=== PATIENT | female | born 1940 | race Caucasian/White ===

== ENCOUNTER 2017-06-18 15:22 | Emergency (ER) | payer MEDICARE, OTHER ==
[~2017-06-18] VITALS: Ht 162.6 cm; Wt 52.2 kg
[~2017-06-18 15:22] MED LIST: CALCIUM + VITA1 EACH PO; CENTRUM COMPLE1 EACH PO; CIPRO500 MG PO; DYMISTA NASAL S23 GM NAS; FISH OIL 1,001000 MG PO; FLAX OIL1000 MG PO; FUROSEMIDE20 MG PO; GLUMETZA500 MG PO; HUMULIN N100 UNIT/1 SUB-Q; KEFLEX500 MG PO; NADOLOL20 MG PO; NOVOLOG FL100 UNIT/1 SUB-Q; PANTOPRAZOLE SO40 MG PO; SPIRONOLACTONE50 MG PO; VITAMIN D1000 UNIT PO; ZOCOR10 MG PO
--- OUTSIDE RECORDS SUMMARY | 2017-06-18 15:54 | XMS ---
Demographics + + + | Address | [address] | | | [place] [address] | + + + | Preferred Language | Unknown | + + + | Marital Status | Unknown | + + + | Church Affiliation | Unknown | + + + | Race | Unknown | + + + | Ethnic Group | Unknown | + + + Author + + + | Author | [facility] | + + + | Organization | [facility] | + + + | Address | [address] | | | [place] [address] | + + + | Phone | | + + + Care Team Providers + + + + | Care Paintings Restorer Name | Role | Phone | + + + + Unavailable | Unavailable | + + + + PROBLEMS +---------+ + + +--------+ + + | Type | Condition | ICD9-CM | CAM23-VZ | Onset | Condition | SNOMED | | | | Code | Code | Dates | Status | Code | +---------+ + + +--------+ + + | Problem | Cirrhosis | K74.60 | | | Active | [id number] | | | of liver | | | | | | +---------+ + + +--------+ + + | Problem | Hyponatrem | | E87.1 | | Active | 29979584 | | | ia | | | | | | +---------+ + + +--------+ + + | Problem | Diabetes | E11.65 | | | Active | [id number] | | | mellitus | | | | | [address] | | | with | | | | | | | | hyperglyce | | | | | | | | noreen | | | | | | +---------+ + + +--------+ + + | Problem | Left knee | | M25.562 | | Active | [id number] | | | pain | | | | | | +---------+ + + +--------+ + + | Problem | Kidney | N18.3 | | | Active | [id number] | | | disease, | | | | | | | | chronic, | | | | | | | | stage III | | | | | | | | (GFR 30-59 | | | | | | | | ml/min) | | | | | | +---------+ + + +--------+ + + | Problem | Vitamin D | | E55.9 | | Active | [id number] | | | deficiency | | | | | | | | , | | | | | | | | unspecifie | | | | | | | | d | | | | | | +---------+ + + +--------+ + + ALLERGIES Unknown Allergies SOCIAL HISTORY No smoking Hx information available PLAN OF CARE VITAL SIGNS MEDICATIONS Unknown Medications RESULTS No Results PROCEDURES No Known procedures IMMUNIZATIONS No Known Immunizations"
[2017-07-09] MEDS ORDERED: CENTRUM SILVER1 EAC3 PO (14:09)
[2017-07-09] MEDS ORDERED: FISH OIL 1,0001 EAC3 PO (14:10)
[2017-07-09] MEDS ORDERED: LIDODERM1 EACH TD (14:12)
[2017-07-09] MEDS ORDERED: METFORMIN HCL500 MG PO (14:14)
[2017-07-09] MEDS ORDERED: NITROFURANTOIN100 MG PO (14:15)
== END 2017-06-18 16:41 | disposition home or self-care (01) ==
LOC: ED 15:22
DX: M79.81 Nontraumatic hematoma of soft tissue (principal); E78.5 Hyperlipidemia, unspecified; D64.9 Anemia, unspecified; F32.9 Major depressive disorder, single episode, unspecified; E11.9 Type 2 diabetes mellitus without complications; K21.9 Gastro-esophageal reflux disease without esophagitis; I10 Essential (primary) hypertension; M79.7 Fibromyalgia; Z86.73 Personal history of transient ischemic attack (TIA), and cerebral infarction without residual deficits; Z87.891 Personal history of nicotine dependence; Z90.49 Acquired absence of other specified parts of digestive tract; Z90.710 Acquired absence of both cervix and uterus; Z90.89 Acquired absence of other organs; Z88.0 Allergy status to penicillin; Z79.899 Other long term (current) drug therapy; Z79.2 Long term (current) use of antibiotics; Z79.4 Long term (current) use of insulin
CPT/HCPCS: 99282

== ENCOUNTER 2017-07-19 09:40 | Inpatient (IN) | payer MEDICARE, OTHER ==
[~2017-07-19] VITALS: Ht 162.6 cm; Wt 54.4 kg
[~2017-07-19 09:40] MED LIST changes: +CENTRUM SILVER1 EAC3 PO; +FISH OIL 1,0001 EAC3 PO; +LIDODERM1 EACH TD; +METFORMIN HCL500 MG PO; +NITROFURANTOIN100 MG PO
--- OUTSIDE RECORDS SUMMARY | 2017-07-19 10:02 | XMS ---
Demographics + + + | Address | [address] | | | [place] [address] | + + + | Preferred Language | Unknown | + + + | Marital Status | Unknown | + + + | Gnosticism Affiliation | Unknown | + + + | Race | Unknown | + + + | Ethnic Group | Unknown | + + + Author + + + | Author | [facility] | + + + | Organization | [facility] | + + + | Address | [address] | | | [place] [phone] | + + + | Phone | | + + + Care Team Providers + + + + | Care Quality Auditor Name | Role | Phone | + + + + Unavailable | Unavailable | + + + + PROBLEMS +---------+ + + +--------+ + + | Type | Condition | ICD9-CM | NSE98-ZB | Onset | Condition | SNOMED | | | | Code | Code | Dates | Status | Code | +---------+ + + +--------+ + + | Problem | Cirrhosis | K74.60 | | | Active | [id number] | | | of liver | | | | | | +---------+ + + +--------+ + + | Problem | Hyponatrem | | E87.1 | | Active | 81590833 | | | ia | | | | | | +---------+ + + +--------+ + + | Problem | Diabetes | E11.65 | | | Active | [id number] | | | mellitus | | | | | [address] | | | with | | | | | | | | hyperglyce | | | | | | | | noreen | | | | | | +---------+ + + +--------+ + + | Problem | Left knee | | M25.562 | | Active | 609136901 | | | pain | | | | | | +---------+ + + +--------+ + + | Problem | Kidney | N18.3 | | | Active | [id number] | | | disease, | | | [...] | | E55.9 | | Active | 90713555 | | | deficiency | | | | | | | | , | | | | | | | | unspecifie | | | | | | | | d | | | | | | +---------+ + + +--------+ + + ALLERGIES No Information SOCIAL HISTORY Never Assessed PLAN OF CARE VITAL SIGNS MEDICATIONS Unknown Medications RESULTS No Results PROCEDURES No Known procedures IMMUNIZATIONS No Known Immunizations MEDICAL (GENERAL) HISTORY + + +------+ | Type | Description | Date | + + +------+ | 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 | | + + +------+ | Medical History | benign positional vertigo | | + + +------+ | Medical History | Chronic rhinitis | | + + +------+ | Medical History | cirrhosis | | + + +------+ | Medical History | DM 2 | | + + +------+ | Medical History | depression | | + + +------+ | Medical History | gerd | | + + +------+ | Medical History | HTN | | + + +------+ | Medical History | hyperlipidemia | | + + +------+ | Medical History | left medial knee pain | | + + +------+ | Medical History | leukopenia | | + + +------+ | 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
[2017-07-19] MEDS ORDERED: ZOFRAN ODT4 MG SL (10:49)
[2017-07-19] MEDS ORDERED: POTASSIUM CHLO20 ME1 PO (10:50)
[2017-07-19] MEDS ORDERED: ULTRAM50 MG PO (11:31)
[2017-07-19] MEDS ORDERED: ACETAMINOPHEN650 M1 PO (11:32)
--- NOTE | 2017-07-19 16:06 | NUR ---
IV SITE INTACT, NO REDNESS OR SWELLING NOTED, FLUSHES AND FLUIDS INFUSE EASILY. PT SOMNOLENT RESPONDS WITH MOANING ONLY TO PHYSICAL STIMULI. VITALS WNL AT THIS TIME. INCISION SITE ON LEFT THIGH, DRAIN INTACT, DRESSING INTACT, NO DRAINAGE ON DRESSING NOTED. BARAK DRAIN HAS SANGUINEOUS DRAINAGE NOTED.
--- NOTE | 2017-07-19 16:41 | NUR ---
REDDENED COCCYX NOTED, WELL STERI STRIPS ON BILAT ARMS FOR WHAT APPEARS TO BE SKIN TEARS.
[2017-07-19] MEDS ORDERED: DULCOLAX10 MG PR (16:46)
[2017-07-19] MEDS ORDERED: FLEET ENEMA133 ML PR (16:49)
[2017-07-19] MEDS ORDERED: GLUCAGON EMERGEN1 MG INJ (16:51)
[2017-07-19] MEDS ORDERED: HUMULIN N100 UNIT/1 SUB-Q (16:58)
[2017-07-19] MEDS ORDERED: MILK OF MA400 MG/5 M PO (17:00)
--- NOTE | 2017-07-19 17:05 | NUR ---
CALLED TO UPDATE ON PT STATUS OF NOT WAKING UP AND SPIKING A FEVER. ORDERS GIVEN FOR URINARY WATKINS TEMP PROBE CATH TO BE PLACE, 250 ML LR BOLUS TO BE GIVEN NOW, AND TYLENOL AVALIABLE SUPPOSITORY AT 650 MG Q 6 HRS PRN FEVER/PAIN.
--- NOTE | 2017-07-19 17:06 | NUR ---
MED REC COMPLETE--FACILITY MAR
--- NOTE | 2017-07-19 18:04 | NUR ---
PT STILL ONLY RESPONSIVE TO BEING TURNED IN THE BED. WATKINS TEMP PROB URINARY CATH PLACED, PT CURRENT TEMP IS 102.9. PT WAS GIVEN A TYLENOL 650 MG SUPPOSITORY AT 1730. PT INCONTINENT OF STOOL AND URINE PRIOR TO WATKINS PLACEMENT. 22 G IV STARTED IN LEFT WRIST.
--- NOTE | 2017-07-19 18:09 | NUR ---
BARAK DRAIN EMPTIED X4, DRAINAGE CONTINUES TO BECOME MORE MILKY AND THICK LESS BLOODY. STRIPPING TUBING EACH TIME BULB IS DRAINED.
--- NOTE | 2017-07-19 18:40 | NUR ---
CALLED TO UPDATE ON PT STATUS, FEVER UP TO 103.3, LARGE AMOUNTS OF DRAINAGE EMPTIED, PT MAKING QS URINE, PT SATS MAINTAINING ON ROOM AIR AT 94-92%. NO FURTHER ORDERS AT THIS TIME.
--- NOTE | 2017-07-19 19:12 | EKG ---
[facility] [address] [place] [address] Signed Normal sinus rhythm Normal ECG When compared with ECG of 09-JUL-2017 09:58, No significant change was found Confirmed by BENJAMIN MYLES MD ([id number]) on 07/19/2017 7:12:46 PM Electronically Signed By: BENJAMIN MYLES MD 07/19/171911 PATIENT NAME: [place] SLOAN GINNY Electrocardiogram DATE OF : 38 PHYSICIAN: BENJAMIN MYLES MD REPORT #: [id number] REPORT IS CONFIDENTIAL AND NOT TO BE RELEASED WITHOUT AUTHORIZATION
--- NOTE | 2017-07-19 22:16 | NUR ---
PT PURPOSEFUL, WITHDRAWS FROM PAIN. COOL WASHCLOTH TO FOREHEAD, TEMP DECREASING. VS STABLE, REPOSITIONED.
--- NOTE | 2017-07-19 23:23 | NUR ---
LR BOLUS [address] RESTREPO. REPEAT X1 FOR UO<20 ML/HR.
--- NOTE | 2017-07-20 00:37 | NUR ---
LEVOPHED GTT AT 2 MCG/MIN DUE TO SYSTOLIC BP IN HIGH 80'S. PT'S SYSTOLIC BP AT THIS TIME IS 106. FC DRAINAGE MONITORED, TEMPERATURE DECREASING. PT ABLE TO FOLLOW COMMANDS TO OPEN MOUTH FOR ORAL SWAB. OPENS EYES WHEN SPOKEN TO, DRIFTS TO SLEEP. LUNGS CLEAR/DIMINISHED.
--- NOTE | 2017-07-20 00:49 | NUR ---
LEVOPHED GTT INCREASED FROM 2-3 MCG/MIN. SYSTOLIC BP HIGH 80'S AND ONE READING OF 90.
--- NOTE | 2017-07-20 02:09 | NUR ---
LR BOLUS OF 250 ML STARTED FOR UO OF 30 ML IN 2 HRS.
--- NOTE | 2017-07-20 03:10 | NUR ---
LR BOLUS OF 250 ML INFUSED, UO 30 ML MOST RECENT 1 HR.
--- NOTE | 2017-07-20 07:41 | NUR ---
IV SITES INTACT, NO REDNESS OR SWELLING NOTED, FLUIDS INFUSING EASILY.
--- NOTE | 2017-07-20 07:43 | NUR ---
changed levaphed drip to 5 mcg/min as pt MAP is 51.
--- NOTE | 2017-07-20 07:53 | NUR ---
pt moving arms and toes occasionally. pt has purposeful movement, for example she will scratch her face. pt opens eyes to verbal stimuli. pt stated "help me". when asked if she was in pain pt said "yes" unable to communicate where her pain was. pt appears painful/sensitive to have arms or legs moved, even in small amounts. pt is afebrile at this time. oral care done with pink swabs, pt pepito well, opens mouth when requested.
--- NOTE | 2017-07-20 08:07 | NUR ---
PT CHANGED TO ROOM AIR FROM 2L O2 SAT IS 100%, WILL MONITOR TO SEE IF PT KATHY THIS CHANGE.
--- NOTE | 2017-07-20 08:15 | NUR ---
PT NOT ABLE AT THIS TIME TO SWALLOW PILLS, TYLENOL SUPPOSITORY GIVEN FOR GENERALIZED PAIN. PT INCONTINENT OF SCANT AMOUNT SOFT STOOL. REDDENED AREA NOTED ON COCCYX, BARRIER CREAM APPLIED.
--- NOTE | 2017-07-20 08:22 | NUR ---
PT REPOSITIONED IN BED WITH PILLOWS UNDER BILAT HIPS TO RELIEVE COCCYX AREA. DRESSING ON LEFT MEDIAL THIGH CHANGED, OLD DRESSING SATURATED IN SANGUINE/PURULENT DRAINAGE. GAUZE AND TAPE REPLACED. BARAK DRAIN IN PLACE.
--- NOTE | 2017-07-20 08:54 | NUR ---
LEVOPHED DRIP CHANGED TO 6 MCG/MIN TO MAINTAIN SBP AND MAP IN TARGET RANGE. PT O2 SATS MAINTAINED AT 97-100% ON ROOM AIR.
--- NOTE | 2017-07-20 09:08 | NUR ---
IN TO SEE PT.
--- NOTE | 2017-07-20 09:12 | NUR ---
leviphed drip titrated down to 5 mcg/min.
--- NOTE | 2017-07-20 09:25 | NUR ---
PT HAS PRODUCTIVE COUGHT, ABLE TO EXPECTORATE SMALL THICK SPUTUM CHUNK.
--- NOTE | 2017-07-20 09:30 | NUR ---
ORDERED BP GOAL IS TO TITRATE LEVOPHED DRIP TO KEEP SYSTOLIC BP 95 TO 90. DISCUSSED WITH THE MAP, AT THIS TIME, IS NOT A TITRATION MARKER FOR THIS PT.
--- NOTE | 2017-07-20 09:34 | NUR ---
LEVOPHED DRIP TITRATED DOWN TO 4 MCG/MIN
--- NOTE | 2017-07-20 10:02 | NUR ---
PT ABLE TO KATHY BITES OF SOFT BREAKFAST. PT KATHY DRINKS OF WATER. PT ABLE TO SWALLOW PILL WITH BITE OF YOGURT.
--- NOTE | 2017-07-20 10:53 | NUR ---
LEVOPHED DRIP TITRATED TO 3 MCG/MIN.
--- NOTE | 2017-07-20 10:53 | NUR ---
PT GIVEN BED BATH AND HAIR SHAMPOOED WITH CAP. WATKINS CATH CARE DONE, NYSTANTIN CREAM APPLIED TO TRISHA AREA. PT INCONTINENT OF STOOL, PT CLEANED AND CHUCKS CHANGED, BARRIER CREAM APPLIED TO COCCYX AREA.
--- NOTE | 2017-07-20 12:05 | NUR ---
LEVOPHED DRIP TITRATED DOWN TO 2 MCG/MIN.
--- NOTE | 2017-07-20 12:30 | NUR ---
LEVOPHED DRIP TURNED BACK UP TO 3 MCG/KG DUE TO BP OF 83/34
--- NOTE | 2017-07-20 13:27 | NUR ---
1320 - DR RESTREPO UPDATED ON PATIENT CURRENT STATUS. LEVOPHED AT 3MCG/MIN WITH BP'S 96-105 SBP. LACTIC ACID FROM 1209 DRAW WAS 3.7 NOTIFIED PATIENT MORE AWAKE AND ALERT FROM EARLIER THIS MORNING. ALSO NOTIFIED PT ATE APPROX 20% OF BREAKFAST AND WAS GIVEN HER LONG ACTING INSULIN BY COLLEEN. MOST RECENT BS 423, ORDER TO GIVE 14 UNITS OF HUMALOG PER SLIDING SCALE.
--- NOTE | 2017-07-20 14:15 | NUR ---
DAUGHTER AND SON-IN-LAW IN PT ROOM VISITING.
--- NOTE | 2017-07-20 14:30 | NUR ---
LEVOPHED DRIP TITRATED TO 2 MCG/HR DUE TO BP OF 103/38.
--- NOTE | 2017-07-20 14:48 | NUR ---
LEVOPHED TUNED BACK TO 3 MCG/MIN DUE TO BP OF 75/43 (47).
--- NOTE | 2017-07-20 15:07 | NUR ---
PT KATHY SIPS OF CHOCOLATE GLUCERNA.
--- NOTE | 2017-07-20 17:00 | NUR ---
PT REPOSITIONED WITH PILLOWS UNDER BILAT HIPS.
--- NOTE | 2017-07-20 17:49 | NUR ---
LEVOPHED DRIP TURNED UP TO 4 MCG/MIN DUE TO /33.
--- NOTE | 2017-07-20 18:06 | NUR ---
PT ABLE TO EAT FOUR BITES OF DINNER AND DRANK 2/3 OF A GLUCERNA. PT CONTINUES TO SAY "I HAVE TO GO TO THE BATHROOM" WHEN PLACED ON THE BEDPAN IS UNABLE TO GO, HAS HAD 3 SMEARS OF BM THROUGH OUT THE DAY SHIFT.
--- NOTE | 2017-07-20 20:12 | NUR ---
PROVIDER COMMUNICATION HAS ALREADY OCCURRED REGARDING SYSTOLIC BP.
--- NOTE | 2017-07-20 22:22 | NUR ---
PT MUCH MORE CONVERSATIONAL. SPEAKS INDEPENDENTLY OF BEING ASKED A QUESTION. COHERENT, OCCASIONAL COMMENT NOT UNDERSTOOD BY STAFF.
--- NOTE | 2017-07-21 07:54 | NUR ---
PT LEVOPHED GTT ON 2 MCG/MIN.
--- NOTE | 2017-07-21 07:57 | NUR ---
PATIENT RESTING IN BED UPON INITIAL ASSESSMENT. LEVOPHED CURRENTLY INFUSING AT 2 MCG/MIN INTO A NEW 18 G ON RIGHT WRIST. PT ALSO HAD D5 LR @ 85 ML/HR. PATIENT IS CONFUSED TO PLACE AND DATE, BUT ABLE TO STATE HER NAME AND STATE THAT SHE IS IN A HOSPITAL BED. PT STATES THAT "LIFE IS PAINFUL" AND SHE SEEMS OVERALL SAD AND DEPRESSED. DRESSING ON LEFT UPPER THIGH INTACT WITHOUT DRAINAGE SHOWING, BUT BARAK IS SHOWING DARK MAROON COLORED OUTPUT. SCDs ON. LUNGS CLEAR, PT ON ROOM AIR. PT VERY WEAK AND HARDLY ABLE TO MOVE HER EXTREMEITES. CONTINUE TO MONITOR CLOSELY.
--- NOTE | 2017-07-21 12:15 | NUR ---
Patient incontinant of stool. Bed linens changed, olga/cath care done. Removed soiled Allevyn dressing from coccyx. No open skin breakdown noted. Area is very red, but blanches well. Gently cleaned area and re-applied fresh Allevyn dressing. Patient positioned on right side. Dressing to left thigh drain site saturated with serous drainage. Changed guaze, BARAK stripped and drained. Patient moaning and painful when being moved, however denies pain and is resting easily once re-postioned and comfortable. Patient has 2 new small skin tears to left forearm, Patient was picking at tape to that area. Covered with nonadherant guaze. Patient has call light in reach, frequent checks from nursing staff.
--- NOTE | 2017-07-21 12:39 | NUR ---
Called MD to update on crtitical blood glucose (536) Patient given 6 units Novolog per sliding scale. Awaiting further orders from MD. Patient resting comfortably at this time.
--- NOTE | 2017-07-21 13:46 | NUR ---
LEVOPHED RESTARTED AT 1340. MAP REMAINS <60. CBG WAS 488. DR. MYLES OVERSEEING PATIENT'S CHART AND NEW ORDERS BEING INPUT. PT'S DAUGHTER AND SON IN LAW IN ROOM. MOSHE FROM [facility] THERAPY IN ROOM WORKING WITH PATIENT. PATIENT IS LETHARGIC AND DROWSY AT THIS TIME, AND NOT INTERACTIVE SHE WAS EARLIER IN THE DAY. WATKINS CONTINUES TO DRAIN CLEAR YELLOW URINE.
--- NOTE | 2017-07-21 16:42 | NUR ---
PATIENT CONTINUES TO REST IN BED. PT BEING TURNED Q2 HRS. PATIENT TO HAVE A CENTRAL LINE PLACED BY DR. RESTREPO TODAY. LEVOPHED REMAINS ON AND INFUSING INTO PERIPHERAL SITE, 18 G RIGHT FOREARM AT 3 MCG/MIN. PATIENT REMAINS CONFUSED AND STATING RANDOM THINGS WHEN IN ROOM. PT HAS ASKED SEVERAL TIMES, "WHERE AM I?" OR HAS NOTED SOME CONVERSATION THAT DID NOT ALIGN WITH WHAT THIS RN WAS DISCUSSING WITH HER. CONTINUE TO MONITOR URINE OUTPUT. PT REMAINS ON ROOM AIR. CONTINUE TO MONITOR.
--- NOTE | 2017-07-21 19:30 | NUR ---
MD AT BEDSIDE TO ASSESS PT AND RE-ADRESS CENTRAL LINE PLACEMENT. PER MD TRY TO WEAN OF BLOOD PRESSURE GTT. MAINTAIN SYSTOLIC BP 90-95. PER MD WILL READRESS IN THE AM AFTER PT HAS BEEN ON VANCO FOR 24 HRS THE NEED OF A CENTRAL LINE VS A PICC LINE VS A MIDLINE. WILL CONTINUE TO MONTIOR.
--- NOTE | 2017-07-21 20:00 | NUR ---
PT RESTING IN BED. REPOSITIONED WITH PILLOW SUPPORT. CHANGED IV MEDICATION TUBING PER POLICY. ASSESSMENT COMPLETED. PT RESTING IN BED. PT IS SOMEWHAT DISORIENTED. PT KNOWS NAME AND DATE OF BUT IS DISORIENTED TO THE REST. AT TIMES PT KNOWS SHE IS IN THE HOSPITAL. PT WILL ALSO REPLY WITH INFORMATION NOT APPLICABLE TO THE CURRENT QUESTIONS BEING ASKED. CALL LIGHT IN REACH. EDUCATED HOW TO USE DEVICE. BED IN LOWEST POSITION. WILL CONTINUE TO CHA.
--- NOTE | 2017-07-21 20:45 | NUR ---
CALLED MD PRIOR TO ADMINISTRATION OF INSLIN. PT BS 387. PT RECCIVED LEVIMIR AT 1430. PT HAD NEXT DOES DUE AT 2100. PER GO AHEAD AND GIVE 2100 DOES D/T PT BS REMAINING IN THE 300'S. WILL CONTINUE TO MONITOR.
--- NOTE | 2017-07-21 21:30 | NUR ---
PT HAD AN X-LARGE SOFT. CLEANED PT. CHANGED DRAWSHEET, TRISHA-PAD, PLACED FRESH FOAM PAD ON BUTTOCKS. COCCYX IS REDDENED WITH MORE OF A PURPLUISH AREA IN THE CENTER OF COCCYX. NO OPEN AREAS NOTED. APPLIED BARRIER CREAM AND NYSTATIN CREAM. CHANGED GAUZE DRESSING ON THIGH. EMPTIED BARAK DRAIN. WRAPPED ARM WITH KERLIX TO PREVENT PT FROM PULLING AT IV SITES. REPOSITIONED IN BED WITH PILLOW SUPPORT AND TURNED LIGHTS DOWN FOR THE NIGHT. WILL CONTINUE TO CLOSELY MONITOR.
--- NOTE | 2017-07-21 23:30 | NUR ---
REPOSITIONED PT IN BED WITH PILLOW SUPPORT. WILL CONTINUE TO MONITOR.
--- NOTE | 2017-07-22 00:19 | NUR ---
PT RESTING IN BED AT THIS TIME. CALL LIGHT IN REACH. WILL CONTINUE TO MONITOR.
--- NOTE | 2017-07-22 00:45 | NUR ---
PT RESTING IN BED. REPOSITIONED WITH PILLOW SUPPORT. CHANGED GTT TO 3MCG/MIN. WILL CONTINUE TO MONITOR.
--- NOTE | 2017-07-22 03:00 | NUR ---
REPOSITIONED PT WITH PILLOW SUPPORT. PT URINE OUTPUT IS IMPROVING. PT BP 90-100 SYSTOLIC. TITRATED LEVAPHED GTT DOWN TO 2 MCG/MIN PER ORDERS. WILL CONINUE TO CLOSELY MONITOR.
--- NOTE | 2017-07-22 05:30 | NUR ---
LAB IN TO DRAW MORNING LABS TOOK APROX 15-20 MINUTES. NO OTHER ISSUES AT THIS TIME. PERIPHERAL IV SITES ARE C/D/I WITH NO REDNESS. WILL CONTINUE TO MONITOR.
--- NOTE | 2017-07-22 06:00 | NUR ---
PT REPOSITIONED HAD SMALL BM THIS AM. CLEANED. APPLIED BARRIER CREAM AND REPOSITIONED IN BED WITH PILLOW SUPPORT. PT TOLERATED WELL. CHANGED WOUND DRESSING. EMPTIED BARAK DRAIN. TURNED LEVAPHED GTT TO 1MCG/MIN. WILL CONTINUE TO MONITOR VITAL SIGNS AT THIS TIME.
--- NOTE | 2017-07-22 08:00 | NUR ---
DR. MYLES HERE TO SEE PATIENT. IS MORE AWAKE NOW THAN EARLIER. WILL FOLLOW SOME COMMANDS. ASSESSMENT DONE. WATKINS CATH PATENT. BARAK TO WOUND REMAINS IN PLACE. DRESSING IS DRY AND INTACT. SCD'S ON
--- NOTE | 2017-07-22 08:30 | NUR ---
SITTING UP INN BED TO TAKE BREAKFAST. IS SLOW TO RESPOND VERBALLY AND HAS VERY LIMITED MOVEMENT.
--- NOTE | 2017-07-22 10:15 | NUR ---
INCONT OF MED TO LARGE AMOUNT OF STOOL.
--- NOTE | 2017-07-22 11:00 | NUR ---
LEVOPHED GTT TO OFF. WILL CONTINUE TO MONITOR BP FREQUENTLY.
--- NOTE | 2017-07-22 12:00 | NUR ---
ASSESSMENT DONE. REMAINS OFF LEVOPHED GTT.
--- NOTE | 2017-07-22 15:04 | NUR ---
RESTFUL AT THIS TIME.
--- NOTE | 2017-07-22 19:00 | NUR ---
DR. RESTREPO HERE TO SEE PATIENT. PATIENT IS SITTING UP IN BED EATING DINNER
--- NOTE | 2017-07-22 19:30 | NUR ---
PT SHIFT REPORT COMPLETED. PT RESTING IN BED. PT WATCHING TV AT THIS TIME. WILL CONTINUE TO CLOSELY MONITOR. NO OTHER ISSUES AT THIS TIME.
--- NOTE | 2017-07-22 20:15 | NUR ---
PT ASSESSMENT COMPLETED. PT LUNGS CLEAR/DIMINISHED. BOWEL TONES ACTIVE. WATKINS EMPTING QUANTITY SUFFICIENT. PT DENIES ANY NEEDS AT THIS TIME. REPOSITIONED WITH PILLOW SUPPORT.
--- NOTE | 2017-07-22 22:00 | NUR ---
TURNED AND CLEANED PT. PLACE BARRIER CREAM AND CHANGED ATTENDS. PT HAD A SMALL SMEAR. PT REPOSITIONED WITH PILLOW SUPPORT ON SIDE. PT TOELRATED WELLL. CHANGED DRESSING PRN. EMPTIED BARAK DRAIN. WILL CONTINUE TO MONITOR. CALL LIGHT IN REACH.
--- NOTE | 2017-07-22 23:30 | NUR ---
PT HAD NO UO FOR THE LAST HOUR. PT HAS GOOD UO PRIOR TO THIS. FLUSHED WATKINS WITH NO OUTPUT. REMOVED OLD WATKINS. CLEANED, PREPED, AND PLACE NEW WATKINS AFTER BLADDER SCAN SHOWED >400 ML URINE. PT DOES HAVE ASCITEIES IN ABD. UNSURE IF BLADDER SCAN IS READING URINE OR ASCITES FLUID. NO URINE PRESENT WITH NEW WATKINS PLACED. CALL DR. MYLES. PER DR NEED TO CALL OTHER MD REGUARDING FLUID STATUS.
--- NOTE | 2017-07-22 23:40 | NUR ---
CALLED DR. RESTREPO TO UPDATE REGUARDING ISSUES WITH URINE, BLADDER SCAN SHOWING >400MLS PRESENT, AND NO URINE OUPUT WITH NEW WATKINS. PER MD BOLUS WITH 250ML LR. IF NO IMPROVEMENT. GIVE 20ML LASIX IV. WILL CONTINUE TO CLOSELY MONITOR.
--- NOTE | 2017-07-23 01:00 | NUR ---
PT RESTING IN BED. PT URINE IS STARTING TO INCREASE. WILL CONTINUE TO MONITOR AT THIS TIME. REPOSITIONED WITH PILLOW SUPPORT.
--- NOTE | 2017-07-23 02:00 | NUR ---
URINE CONTINUES TO HOLD AT OR ABOVE 20ML/HR. GOAL UO IS 20ML/HR. REPOSITIONED PT WITH PILLOW SUPPORT. WILL CONTINUE TO MONITOR. CALL LIGHT IN REACH.
--- NOTE | 2017-07-23 04:00 | NUR ---
PT RESTING IN BED. PT HAS SLEPT WELL TONIGHT. REPOSITIONED WITH PILLOW SUPPORT. WILL CONTINUE TO MONITOR.
--- NOTE | 2017-07-23 06:00 | NUR ---
TURNED PT AND CHANGED ATTENDS. PT WAS ABLE TO HELP TURN HERSLEF AND HOLD HERSELF ON SIDE THIS AM. THIS IS A HUGE IMPROVEMENT SINCE THE PRIOR DAY. DRESSING REMAINS C/D/I. BARAK EMPTIED. UO MAINTING ABOVE 20ML/HR. BARRIER CREAM APPLIED. FOAM DRESSING CHANGED. REPOSITIONED WITH PILLOW SUPPORT. PT TOELRATING WELL. CALL LIGHT IN REACH. WILL CONTINUE TO MONITOR.
--- NOTE | 2017-07-23 10:26 | NUR ---
DR. MYLES IN ROOM EVALUATING PATIENT. PT ALERT, TALKATIVE, AND CONVERSING WITH MD. 90 ML DRAINED FROM BARAK FOR A SEROUS FLUID WITH SOME BLOOD CLOTS NOTED.
--- NOTE | 2017-07-23 11:27 | NUR ---
PATIENT IS MUCH MORE ALERT AND TALKATIVE TODAY. PT CONFUSED TO WHY SHE IS IN HOSPITAL BUT RE-ORIENTED BEST POSSIBLE. PT IS A VERY HARD IV START AND DIFFICULT TO DRAW LABS FROM. DR. RESTREPO IN ROOM TO EVAL PATIENT. PT CONTINUES WITH WATKINS CATHETER AND PT'S DIURETICS ARE TO BE RESTARTED. PATIENT ASKING TO TALK WITH HER DAUGHTER AND HER DAUGHTER'S CELL PHONE CALLED BUT NO ANSWER. PT REMAINS VERY PAINFUL TO ANY TOUCHING OF ANY PART OF HER SKIN. PT GIVEN 15 UNITS OF LEVEMIR THIS AM. PT BEING ENCOURAGED TO DRINK GLUCERNA/ENSURE TO HELP BOOST HER PROTEIN LEVELS. PT AGREEABLE. PT TOLERATED HER BREAKFAST THIS AM FAIRLY WELL. PT ALSO GOING TO BE ENCOURAGED TO MOVE AROUND MORE TODAY AND PHYS THERAPY WILL BE IN SOON TO WORK WITH PATIENT. CONTINUE TO MONITOR.
--- NOTE | 2017-07-23 12:26 | NUR ---
PATIENT PULLED OUT LEFT WRIST IV. NURSE NOTIFIED. GAUZE AND TAPE PUT ON TO STOP BLEEDING.
--- NOTE | 2017-07-23 13:14 | NUR ---
PATIENT TO HAVE PICC LINE AT THIS TIME. SHON RN HERE TO PLACE PICC LINE. PATIENT ABLE TO SIGN CONSENT FORM. PT'S DAUGHTER TAYLOR, ALSO TALKED TO ON THE PHONE ABOUT THIS PICC LINE. PT'S MAG LEVEL LOW AT 1.4. 2 GM IV MAGNESIUM TO BE GIVEN. PT PULLED IV OUT OF HER LEFT HAND. PT'S OTHER IV IN RIGHT WRIST AREA APPEARS SOMEWHAT RED AND PT STATES IT HURTS. PT WAS ABLE TO WORK WITH PHYS THERAPY AND WAS ABLE TO SIT AT THE EDGE OF THE BED FOR A MINUTE. ENCOURAGING PATIENT TO MOVE MORE. WATKINS DRAINING YELLOW URINE. LASIX WAS GIVEN THIS AM. CONTINUE TO MONITOR.
--- NOTE | 2017-07-23 13:50 | NUR ---
PICC LINE PLACED IN PT'S RIGHT UPPER ARM, 4 FR SINGLE LUMEN. OKAY GIVEN TO USE PICC BY DR. MYLES. IVF CONTINUED AT THIS SITE. CONTINUE TO MONITOR.
--- NOTE | 2017-07-23 13:53 | NUR ---
PICC INSERTION NOTE. ORDERS ENTERED TO EVALUATE [place] FOR POSSIBLE PICC INSERTION. AFTER REVIEWING HER CHART AND INTERVIEWING THE PT AND FAMILY, NO ABSOLUTE CONTRAINDICATIONS WERE FOUND. RISKS AND COMPLICATIONS OF PICC LINES WERE DISCUSSED WITH THE PT AND HER FAMILY AND INFORMED CONSENT WAS SIGNED PRIRO TO THE START OF THE PROCEDURE. THE RIGHT ARM WAS EVALUATED WITH U/S AND THE RIGHT BASILIC VEIN WAS IDENTIFIED AND APPEARED QUITE LARGE ON U/S. FULL CDC RECOMENDATIONS REGARDING INFECTION PREVENTION WERE FOLLOWED FOR THE DURATION OF PICC INSERTION AND STERILE DRESSING APPLICATION. THE RIGHT BASILIC VEIN WAS ACCESSED MIDWAY UP THE RIGHT ARM ON THE FIRST ATTEMPT AND THERE WAS NO DIFFICULTY ADVANCING THE GUIDE WIRE, DILATOR, OR PICC. A STERILE DRESSING WAS APPLIED AND A SINGLE CXR WAS TAKEN WHICH SHOWED THE PICC IN A CENTRAL LOCATION. DR MYLES VIEWED THE XRAY AND STATED, "THE LINE LOOKS GOOD". REPORT WAS GIVEN TO THE PT'S CCU RN WHO IS ALSO A PICC CERTIFIED RN.
--- NOTE | 2017-07-23 15:40 | NUR ---
PATIENT'S FAMILY HERE NOW IN ROOM,VISITING WITH PATIENT. PT HAS BEEN RESTING WELL FOR THE LAST TWO HOURS. WATKINS DRAINED 30 ML LAST HOUR. HEART RATE CURRENTLY 90s, SINUS. LAST BP 109/47. CONTINUE TO MONITOR CLOSELY.
--- NOTE | 2017-07-23 16:19 | NUR ---
PT IS SITTING UP IN BED WITH CALL LIGHT IN REACH. PT DID NOT NEED ANYTHING AT THE MOMENT.
--- NOTE | 2017-07-23 18:51 | NUR ---
PATIENT CONFUSED AGAIN TO WHERE SHE IS. PT RE-ORIENTED TO SURROUNDINGS AND EVENTS TO WHY SHE IS IN HOSPITAL. PATIENT GIVEN WARM BLANKET. URINE OUTPUT BEING MONITORED CLOSELY URINE OUTPUT HAS BEEN MARGINAL - LAST COUPLE HOURS HAVE BEEN 1500-30 ML, 1600-24 ML, 1700-28 ML, AND 1800-12 ML. 2 GM IV MAG INFUSING AT THIS TIME TO TOTAL OF 4 GM OF MAGNESIUM THAT WAS GIVEN TODAY. PT'S PICC LINE IN RIGHT UPPER ARM WORKING WELL. CONTINUE TO MONITOR.
--- NOTE | 2017-07-23 19:30 | NUR ---
PT SHIFT REPORT COMPLETED. PT RESTING IN BED WITH CALL LIGHT IN REACH. PT RECIVED A PICC LINE TODAY. WILL CONTINUE TO MONITOR.
--- NOTE | 2017-07-23 20:30 | NUR ---
PT REQUESTING A SANDWICH. GAVE A BOX LUNCH SANDWICH AND A VANILLA GLUCERNA. PT DRANK ALL GLUECERNA AND 2 SMALL BITS OF SANDWICH.
--- NOTE | 2017-07-23 21:45 | NUR ---
ROLLED PT AND CLEANED UP. PLACED CLEAN CHUX PAD, APPLIED BARRIER CREAM, AND REPOSITIONED IN BED WITH PILLOW SUPPORT. PT TOELRATED WELL. PT DENIES ANY OTHER ISSUES AT THIS TIME. WILL CONTINUE TO MONTIOR.
--- NOTE | 2017-07-23 23:40 | NUR ---
PT RESTING IN BED. TURNED OFF TV TO ENCOURAGE REST AT THIS TIME. URINE IS DOWN SLIGHTLY WILL CALL MD IF NO IMPROVEMENT THIS HOUR.
--- NOTE | 2017-07-24 00:10 | NUR ---
CALLED MD BUCHANAN DECREASED URINE OUTPUT OVER THE LAST 2 HOURS CONTINUES TO DECREASE. LEFT MESSAGE ON CELL PHONE TO CALL CCU.
--- NOTE | 2017-07-24 00:20 | NUR ---
NO CALL BACK FROM MD. CALLED HOUSE PHONE. MD ANSWERED. UPDATED ON URINE OUTPUT AND VITALS. PER MD GIVE 500ML/HR BOLUS. WILL CONTINUE TO MONITOR.
--- NOTE | 2017-07-24 00:45 | NUR ---
PT REPOSITIONED WITH PILOW SUPPORT. NO OTHER ISSUES AT THIS TIME. WILL CONTINUE TO MONITOR.
--- NOTE | 2017-07-24 02:10 | NUR ---
PT RESTING IN BED. PT EYES CLOSED AT THIS. CALL LIGHT IN REACH. WILL CONTINUE TO MONITOR.
--- NOTE | 2017-07-24 04:00 | NUR ---
PT RESTING IN BED AT THIS TIME, REPOSITIONED WITH PILLOW SUPPORT. PT TOELRATED WELL. WILL CONTINUE TO MONITOR. NO OTHER ISSUES AT THIS TIME.
--- NOTE | 2017-07-24 04:32 | NUR ---
PT AWAKE TALKING TO ME WHEN I ENTERED HER ROOM TO CHECK URINE. EXPLAINED IT WAS STILL EARLY AM D/T PT UNAWARE OF TIME. PT STATED "OWH I STILL HAVE MORE TIME TO SLEEP". REPOSITIONED WITH PILLOW SUPPORT. PT TOLERATED WELL. WILL CONTINUE TO MONITOR.
--- NOTE | 2017-07-24 06:43 | NUR ---
repositioned pt with pillow support. educated and will continue to remind pt it is important to move positions. will continue to monitor.
--- NOTE | 2017-07-24 12:00 | NUR ---
PT HAD MED BM AND WAS CHANGED AND PLACED IN CLEAN ATTENDS, THEN SET UP FOR LUNCH
--- NOTE | 2017-07-24 12:18 | NUR ---
PT UP TO THE SIDE OF THE BED WITH PHYSICAL THERAPY AND THIS BACTERIOLOGIST MEDICAL FOR ABOUT THREE MINUTES. PT WANTED TO LAY BACK DONW. PT HAD BROWN IN COLOR BM ALSO DURING THIS TIME, PT CHANGED AND AN ATTENDS WAS PLACED. PT REPOSITIONES TO HER BACK TO EAT LUNCH ALSO AT THIS TIME.
--- NOTE | 2017-07-24 12:32 | NUR ---
PT RESTING UPRIGHT IN BED. SHE WELCOMED ME IN. SHE WAS ALERT, RN PAYAM CAME IN TO CHECK IV ALARM. BRIEF VISIT, SHE MENTIONED THAT SHE WAS ORTHODOXY, THAT IS [facility]THOD[facility]. I ASKED HER IF SHE HAD A VISIT FROM THE [facility] DRAFTING ENGINEER. SHE SAID SHE WOULD LIKE FOR HIM TO COME. I TOLD HER I WILL TRY AND ARRANGE IT SHE THANKED ME, AND SAID VERY POINTEDLY, "I DON'T LIKE TO FEEL NEGLECTED OR FORGOTTEN". I TOLD HER I WOULD CONTACT THE DRAFTING ENGINEER WHICH I DID. HE WILL COME FOR A VISIT. HAD PRAYER WITH HER. WILL FOLLOW NEEDED
--- NOTE | 2017-07-24 13:00 | NUR ---
PT DID NOT EAT MUCH OF HER LUNCH, BUT DID DRINK ALL OF HER GLYCERINA. PT TAKING NAPS AND WATCHING TV AT TIMES THIS SHIFT.
--- NOTE | 2017-07-24 14:02 | OR ---
[facility] [address], [place] [address] Signed DATE OF PROCEDURE: 07/19/17 PREOPERATIVE DIAGNOSES Left thigh persistent fluid collection (4 weeks). Increasing white count and elevated lactic acid. Multiple medical problems. POSTOPERATIVE DIAGNOSIS Large anterolateral thigh abscess (1400 mL pus). PROCEDURE Exam under anesthesia. Incision and drainage of left thigh deep abscess. Placement of drain. SURGEON: Rosaura Restrepo M.D. ANESTHESIA Local 0.25% Marcaine with Epinephrine (10 mL). No intravenous sedation (anesthesia standby Epifanio Liang, DICTAPHONE OPERATOR). INDICATION This 77-year-old white woman is markedly debilitated and resides at [facility]. She was thought to have a hematoma of the left thigh nearly a month ago, which liquefied and plans were made for drainage under the direction of Dr. Kaminski. She was found to have significant hyponatremia (sodium of 118) on a plan for incision and drainage of the fluid collection a few weeks ago. She has had persistence of the fluid collection and now has some pain and although not fully mentating while concern by her daughter and son-in-law (Emily Ramirez) was made and she was taken to the emergency room today where she was evaluated by Dr. Ilya Spivey. She was found to have an elevated white count of 14,000 (19,500 two weeks ago), but an elevated lactic ac i d level of 4.5. Though she did not have erythema over the tense mass of the left anterolateral thigh, concern was maintained this may represent abscess or infected hematoma or fluid collection. Imaging studies in the past have included MRI, ultrasound, and others. Today, she had a chest x-ray, which was normal; urinalysis, which was slightly abnormal; and the findings on the thigh clinically showing a tense nonerythematous mildly tender fluid collection. On the basis of these findings, she will go to operation to undergo incision and drainage of the fluid and Gram stain and culture as appropriate. She understands to the degree she can and her son-in-law and daughter completely the risks of bleeding, Electronically Signed By: ROSAURA RESTREPO MD 07/24/17 1402 PATIENT NAME: HOUSTON SLOAN OPERATIVE REPORT DATE OF : 38 PHYSICIAN: ROSAURA RESTREPO MD REPORT #: [id number] REPORT IS CONFIDENTIAL AND NOT TO BE RELEASED WITHOUT AUTHORIZATION [facility] [address] [place] [id number] Signed infection, anesthetic complications, and other unforeseen complications related to this endeavor. Though she is a do not resuscitate status currently, will be suspended for 24 hours to allow for completion of this task. FINDINGS The entire anterolateral thigh in the left side was consumed by the fluid collection and upon incision was found to have an impressive amount of purulent material. It was hopkins greenish in color, had no foul odor particularly and Gram stain and cultures were sent. In total, 1400 mL of purulence was removed. Irrigation was undertaken in this space and a 7-mm flat Gregory drain placed to closed suction. DESCRIPTION OF PROCEDURE The patient was brought to the operating room and placed in a supine position. The aoc plans intelligence officer chief did not feel that she could tolerate sedation intravenously or otherwise. The patient was somnolent related to her baseline poor medical condition. The anterolateral thigh on the left was prepared with a Chlorhexidine solution and draped sterilely. Photographs were taken. A 10 mL of 0.25% Marcaine with epinephrine was injected locally in the anterolateral aspect inferiorly and the incision was made with an 11 blade. Probing of the space allowed for egress of a considerable amount of purulent material, very thick overall, but egressing with persistence. Manipulation of the leg medially, superiorly, laterally, and so forth allowed for complete milking of 1400 mL of purulent material. Once this was completed, a tonsil clamp was placed into the space, which extended just above the knee to essentially the groin showing no particular loculations at that point. A bulb web marketing analyst with antibiotic containing saline solution was used to irrigate the space more fully. The Work in Field suction was used to probe the space, which was broad and wide. A 7-mm flat Gregory drain was placed into the wound a n d secured to the skin with nylon suture after clearance of all purulent material with irrigation. It was attached to bulb suction. Gauze was applied to the operative site. She was taken from the operating room in good condition having suffered no known complications. BLOOD LOSS: Less than 25 mL. The operation was prolonged on the basis of extensive amount of pus withdrawn and efforts to clear it completely. Rosaura Restrepo MD Electronically Signed By: ROSAURA RESTREPO MD 07/24/17 1402 PATIENT NAME: HOUSTON SLOAN OPERATIVE REPORT DATE OF : 38 PHYSICIAN: ROSAURA RESTREPO MD REPORT #: [id number] REPORT IS CONFIDENTIAL AND NOT TO BE RELEASED WITHOUT AUTHORIZATION [address] [address] Signed LAYLA/Modl /[id number] cc: MD Harvey Garcia DO Randall Fryer, MD Electronically Signed By: ROSAURA RESTREPO MD 07/24/17 1402 PATIENT NAME: HOUSTON SLOAN GINNY OPERATIVE REPORT DATE OF : 38 PHYSICIAN: ROSAURA RESTREPO MD REPORT #: [id number] REPORT IS CONFIDENTIAL AND NOT TO BE RELEASED WITHOUT AUTHORIZATION
--- NOTE | 2017-07-24 14:02 | HP ---
[facility] [address] [place], [place] [address] Signed DATE OF ADMISSION: 07/19/17 REASON FOR ADMISSION Persistent left thigh fluid collection, presumed possibly infected hematoma. HISTORY This remarkably debilitated 77-year-old white woman is accompanied by her son and [id number]. She has been evaluated by Dr. Kaminski in the past for a left thigh hematoma. A plan was made for drainage of the large fluid collection based on an MRI performed on July 03, 2017. At time of planned intervention, she was noted to have a sodium level of 118, was deemed a poor candidate for intervention at that time. She has had a rather extensive evaluation of the thigh fluid collection including the left lower extremity venous duplex ultrasound performed under the direction of her primary physician, Dr. Kim on 06/20/2017, which showed a multiloculated fluid collection along the lateral aspect of the left upper thigh 23 cm in size with no associated vascularity. A knee and hip plain x-ray showed no evidence of fracture, dislocation. The MRI performed on July 03, 2017, under the direction of Dr. Alfred Kaminski showed gluteal muscles and vastus muscles of the thigh totally or near totally replaced by multilobulated distended fluid collections suggestive of extensive myonecrosis. Though infection was considered in the differential, she had no sign of toxicity. There was some pelvic ascites as well for which ultrasound attempted aspiration was deemed not possible due to the paucity of fluid on that occasion of attempted drainage. The patient resides at [facility] and is a do not resuscitate status and is well cared for there. She is not ambulatory at all. Her hyponatremia has progressively improved and she presented today with complaints of thigh pain and evaluation undertaken in the emergency room today by Ilya Contreras, the emergency room physician, showed chest x-ray, which was normal and a head CT, which showed some possible frontal sinusitis. No sign of intracranial hemorrhage or transcortical mass or infarction. Mild to chronic microvascular ischemic changes were noted as well as ventriculomegaly. Small fluid levels were layering within the bilateral sphenoid sinus areas. In the course of her evaluation, she was noted to have elevated white count of 14,000 (notably 19.6 on July 09 and therefore improved) with a platelet count of 179,000, band form is 1%. Her Coag studies show a slightly elevated INR of 1.3 and a chem profile showing improved sodium of 126 with a potassium of 4.7, chloride 92, creatinine of 0.83, glucose of 205 and a lactic acid of 3.7. Notably, the calcium was elevated as well to 10.8. Previous evaluation showed it to be normal, however. I was consulted on the possibility that the tense and somewhat uncomfortable fluid collection may be infected at this point for consideration of drainage. Electronically Signed By: ROSAURA RESTREPO MD 07/24/17 1402 PATIENT NAME: HOUSTON SLOAN HISTORY AND PHYSICAL DATE OF : 38 PHYSICIAN: ROSAURA RESTREPO MD REPORT #: [id number] REPORT IS CONFIDENTIAL AND NOT TO BE RELEASED WITHOUT AUTHORIZATION [facility] [address] [place] [id number] Signed PAST MEDICAL HISTORY Relatively extensive. She is a patient of Dr. Kim as an outpatient. 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 She has been described as well as having Jones's esophagus, chronic rhinitis, hyperlipidemia, left knee pain (chronic), history of thrombocytopenia and leukopenia, and history of umbilical hernia. SOCIAL HISTORY She is accompanied by her son and [id number] at this time. She resides at [facility]. REVIEW OF SYSTEMS The patient does not contribute much to her history, although her family is helpful in this regard. She does not have generally speaking chest pain, does have left thigh pain. Has not had abdominal pain. Has had no hematemesis or blood per rectum. PHYSICAL EXAMINATION GENERAL: A thin elderly woman who looks to be very chronically ill and debilitated. She does not look clinically dehydrated at this time. NECK: The trachea is midline. She has no hoarseness. CHEST: No tachypnea and chest is clear. Chest x-ray is normal appearing. ABDOMEN: Does not show extensive ascites that I can see clinically. EXTREMITIES: Lower extremities show muscle wasting bilaterally, but with a tense very firm left anterolateral thigh fluid collection. There is no sign of necessitation. Light touch sensory exam seems diminished bilaterally. LABORATORY DATA Lab studies today show white count of 14.0, hematocrit of 36, platelets 179,000. Her pro-time is 16.1 with an INR of 1.3. Chem profile shows sodium 126, potassium 4.7, chloride 92, bicarb 27, BUN 43, creatinine 0.83, glucose 205, lactic acid 3.7, calcium 10.8, AST 44, ALT 29, alkaline phosphatase 135. Troponin less than 0.01. Albumin 2.2, globulin 5.4. ASSESSMENT The fluid collection is chronic and is considered related to hematoma of the thigh in the past, likely with liquefaction at this point. I think it unlikely represents the source of her lactic acidosis problems (at least elevated lactate level), but drainage has been anticipated previously and she is a reasonable candidate for it at this time. Given her relatively fragile medical condition, I believe intravenous sedation with Propofol infusion and local anesthesia will allow for entry to the thigh to allow for Electronically Signed By: ROSAURA RESTREPO MD 07/24/17 1402 PATIENT NAME: HOUSTON SLOAN HISTORY AND PHYSICAL DATE OF : 38 PHYSICIAN: ROSAURA RESTREPO MD REPORT #: [id number] REPORT IS CONFIDENTIAL AND NOT TO BE RELEASED WITHOUT AUTHORIZATION [facility] [address] [place], [place] [address] Signed drainage. Gram stain and cultures of the fluid would be obtained of course on the possibility that infected liquefied hematoma is accounting for her symptoms. Extensive flay of the extremity is unlikely. I would not expect extensive myonecrosis or anything of that sort despite the postulates of the MRI in the past. Certainly, pressure from a hematoma could impact on muscle function and she is markedly debilitated with essentially no ambulation currently as it is. I reviewed carefully with the patient and in detail with her family members the risks of bleeding, infection, and progressive decline despite efforts to improve her situation by drainage of this fluid mass. They understand. Would suspend her do not resuscitate status for least 24 hours concordant to this intervention and they agree with that as well. MD LAYLA Herrera/Jena /[id number] cc: MD Harvey Aguilera DO Randall Fryer, MD Electronically Signed By: ROSAURA RESTREPO MD 09/28/17 1402 PATIENT NAME: NATHALIAHOUSTON GINNY HISTORY AND PHYSICAL DATE OF : 38 PHYSICIAN: ROSAURA RESTREPO MD REPORT #: [id number] REPORT IS CONFIDENTIAL AND NOT TO BE RELEASED WITHOUT AUTHORIZATION
--- NOTE | 2017-07-24 14:17 | NUR ---
DR RESTREPO NOTIFED OF B/P AND URINE OUTPUT AT THIS TIME, THIS WAS REPORTED TO THE OR CHARGE NURSE. SHE WILL RELAY THE INFORMATION TO DR RESTREPO FOR REGIONAL TANKER TRUCK DRIVER.
--- NOTE | 2017-07-24 14:49 | NUR ---
PT WANTING STAFF TO CALL HER DAUGHTER AND WE DID BUT DAUGHTER IS SLEEPING AT THIS TIME AND WILL RETURN PHONE CALL ONCE AWAKE THIS AFTERNOON.
--- NOTE | 2017-07-24 15:00 | NUR ---
PT TURNED TO HER RIGHT SIDE AT THIS TIME, PILOOW PLACED UNDER LEFT BUTT AT THIS TIME.
--- NOTE | 2017-07-24 15:10 | NUR ---
DR RESTREPO RETURNED CALL AT THIS TIME, NO NEW ORDERS AT THIS TIME.
--- NOTE | 2017-07-24 18:01 | NUR ---
PT'S FAMILY INTO SEE PT THIS EVENING, THEY WANTED TO KNOW WHERE PT'S PINK BLANKET IS. THIS ROLLOFF DRIVER DID NOT KNOW ANYTHING ABOUT A BLANKET, BUT STAFF THAT CARE FOR HER YESTERDAY WILL BE WORKING TONIGHT AND WILL ASK THEM. WHEN PT DINNER CAME FAMILY LEFT "I CAN'T BE HERE WHEN SHE EATS" THEY DID NOT GO INTO IT OTHER THEN WHAT WAS SAID. PT WILL DRINK HER PROTEIN DRINK AND THEN PICK AT HER FOOD. ENCOURAGE PT TO EAT AND HELPED HERE WITH EATTING AND SHE DID EAT A FEW BITES MORE. EXPLAINED WHY SHE SHOULD EAT FOOD FRIST AND THEN DRINK THE DRINK, BUT PT LIKES THE DRINK OVER EATING.
--- NOTE | 2017-07-24 18:39 | NUR ---
PT TURNED TO LEFT SIDE AT THIS TIME. PILLOW UNDER HIP. PT DID HELP SOME WITH TURNING.
--- NOTE | 2017-07-24 21:05 | NUR ---
PATIENT LYING IN BED UPON INITIAL ASSESSMENT AND AWAKE, WATCHING TV. PT IN A PLEASANT MOOD AND STATES SHE IS FEELING PRETTY GOOD. PT UNAWARE THAT IT IS NIGHTTIME AND ONLY ORIENTED TO SELF AND THE FACT THAT SHE IS IN THE HOSPITAL. ASSESSMENT COMPLETE. CONTINUE TO MONITOR.
--- NOTE | 2017-07-24 23:26 | NUR ---
PATIENT SLEEPING AT THIS TIME. PT'S WATKINS DRAINING YELLOW URINE. PT TO BE REPOSITIONED. CONTINUE TO MONITOR.
--- NOTE | 2017-07-25 03:18 | NUR ---
PT AWAKE AND HELPED TO REPOSITION TO LEFT SIDE. PT HAS SLEPT ON AND OFF THROUGH THE NIGHT BUT STATES SHE IS SLEEPING FAIR. URINE OUTPUT SEEMS TO BE PICKING UP THIS EVENING AND WATKINS DRAINING WELL. HEART RATE IN THE 80s. CONTINUE TO MONITOR. PT HAS BEEN REQUESTING GLUCERNA AND DRINKING THEM WELL.
--- NOTE | 2017-07-25 08:00 | NUR ---
PT ATE BKF FAIR DRANK HERE "MILK SHACK" THIS AM. DID WELL WITH THIS URINE OUTPUT IS GOOD TOGAY.
--- NOTE | 2017-07-25 09:55 | NUR ---
COMPLETE BEDBATH AND CATH CARE DONE. PATIENT REFUSED ORAL CARE AT THIS TIME. LINENS CHANGED AND PATIENT WAS REPOSITIONED. PATIENT HAD A BM. PATIENT RESTING IN BED AT THIS TIME, NO OTHER REQUEST.
--- NOTE | 2017-07-25 11:45 | NUR ---
PT WAS GIVEN COMPLETE BED BATH AND LINE CHANGE TODAY. HAD BM AND TOLERATED TURING FROM SIDE TO SIDE.
--- NOTE | 2017-07-25 13:15 | NUR ---
DR TAVERAS INTO SEE PT AT THIS TIME, IV SITE SALINE LOCKED AT THIS TIME, PT CONTIOUES TO EAT LUNCH AT THIS TIME.
--- NOTE | 2017-07-25 14:13 | NUR ---
PO LEVAQUIN ADMINISTERED. PATIENT HAS NO COMPLAINTS. RESTING IN BED AT THIS TIME.
--- NOTE | 2017-07-25 14:39 | NUR ---
PT AT A FEW BITS FOR LUNCH TODAY AND THEM WORKED WITH PHYSICAL THEARPY PT DOES NOT LIKE WORKING WITH PT. SHE DID SIT AT THE SIDE OF THE BED FOR 5 MINUTES AND PLACED HER FEET ON THE GROUND.
--- NOTE | 2017-07-25 15:01 | NUR ---
REPORT CALLLED TO ALY ON M/S UNIT ALL QUESTIONS ANSWERED AND PT CELL PHONE WENT WITH PT TO ROOM 122. ALSO ALL MEDICATIONS SENT WITH PT.
--- NOTE | 2017-07-25 15:20 | NUR ---
pt arrived to room 121 on med surg unit at 1520. no complaints or needs at this time. TV on. BARAK drained 50ml clear/pinkish drainage.
--- NOTE | 2017-07-25 17:55 | NUR ---
TRANSFERRED FROM CCU THIS AFTERNOON. CONFUSED. NEEDS FREQUENT REORIENTATION. MUST ORDER FOOD FOR PATIENT. NOOB. PHYSICAL THERAPY WORKING WITH PATIENT. SAT AT EDGE OF BED TODAY. BEDRIDDEN SINCE MARCH. LEFT LEG DRESSING IN PLACE. BARAK DRAIN EMPTYING CLEAR PINK TINGED SANGUINOUS DRAINAGE. TURN Q2.
--- NOTE | 2017-07-25 19:10 | NUR ---
REPORT RECV'D FROM ALY GUERRA. IN ROOM TO SEE PT, PT IN BED RESTING. WATKINS IN PLACE AND DRAINING. PICC LINE IN THE R UPPER FORARM INTACT. DRESSING TO L THIGH C/D/I, BARAK INTACT. PT ON RA. NO FURTHER NEEDS AT THIS TIME. CALL LIGHT IN REACH.
--- NOTE | 2017-07-25 21:38 | NUR ---
IN TO GIVE PM MEDICATION, PT IN BED SLEEPING. AWAKENS EASILY TO VOICE. CBG 108, NO SS COVERAGE NEEDED. PICC LINE HEP LOCKED. NO FURTHER NEEDS AT THIS TIME. CALL LIGHT IN REACH.
--- NOTE | 2017-07-25 23:09 | NUR ---
IN TO CHECK ON PT. PT IN BED, APPEARS TO BE SLEEPING. WATKINS IN PLACE. NO APPARENT DISTRESS NOTED. CALL LIGHT IN REACH.
--- NOTE | 2017-07-26 00:54 | NUR ---
IN TO CHECK ON PT, PT AWAKE WATCHING TV. ASSESSMENT COMPLETE. BARAK EMPTIED. PT HAS NO FURTHER NEEDS AT THIS TIME. CALL LIGHT IN REACH.
--- NOTE | 2017-07-26 02:00 | NUR ---
IN TO CHECK ON PT, PT AWAKE WATCHING TV. VITALS OBTAINED BY PHOTOCOPIER TECHNICIAN. WATKINS CATH IN PLACE. BARAK IN PLACE. DRESSING C/D/I. NO NEEDS AT THIS TIME. CALL LIGHT IN REACH.
--- NOTE | 2017-07-26 05:18 | NUR ---
PT HAS HAD UNEVENTFUL SHIFT, SLEPT WELL. PLESANTLY CONFUSED, REORIENTS WELL. MUST ORDER FOOD FOR PT. BARAK DRAINING SEROSANGUINOUS/SANGUINEOUS FLUID. WATKINS IN PLACE, UO QS. VITALS STABLE. NO COMPLAINTS OF PAIN. PICC LINE IN R FORARM, HEP LOCKED.
--- NOTE | 2017-07-26 07:00 | NUR ---
BEDSIDE HANDOFF REPORT RECEIVED FROM PREPRESS MANAGER RN. PT RESTING IN BED. PT DENIES NEEDS AT THIS TIME.
--- NOTE | 2017-07-26 07:05 | NUR ---
BEDSIDE HANDOFF REPORT RECEIVED FROM PRESCRIPTION BENEFIT SPECIALIST RN. PT RESTING IN BED. PT DENIES NEEDS AT THIS TIME.
--- NOTE | 2017-07-26 08:30 | NUR ---
PT RESTING IN BED. PT ON ROOM AIR, LUNG SOUNDS CLEAR. PT ORIENTED TO SELF, ASKING ABOUT DAUGHTER. PT DENIES NAUSEA, ABD DISTENDED, BOWEL TONES ACTIVE. WATKINS CATH IN PLACE, DRAINING FREELY. PT DRESSING TO LEFT THIGHT, BARAK INPLACE, DRAINING SEROSANGUINOUS FLUID. BLOOD GLUCOSE 98, SS INSULIN HELD. PT DENIES PAIN. PT DENIES NEEDS AT THIS TIME.
--- NOTE | 2017-07-26 12:15 | NUR ---
BLOOD GLUCOSE 230. PT GIVEN 3 UNITS SS NOVOLOG. PT ASSISTED WITH MEAL SET UP. PT DENIES PAIN. PT DENIES NEEDS AT THIS TIME.
--- NOTE | 2017-07-26 14:00 | NUR ---
PT RESTING IN BED. NO ACUTE CHANGES. PT TURNED, LOOSE BM, PERICARE PROVIDED. PT DENIES OTHER NEEDS AT THIS TIME.
--- NOTE | 2017-07-26 18:26 | NUR ---
PT ON ROOM AIR, LUNG SOUNDS CLEAR. PT WITH POOR APPETITE, ADA DIET, SS INSULINE AND LEVEMIR. BOWEL TONES ACTIVE, DISTENDED ABD, SOFT BM TODAY. PT WITH MODERATE EDEMA TO BLE. HEP LOCK PICC LINE IN R ARM. PT WORKED WITH PHYSICAL THERAPY, PERFORMED SOME BED MOBILITY. PT WATKINS IN PLACE, QS.
--- NOTE | 2017-07-26 18:50 | NUR ---
NOTIFIED OF HYPOTENSION. NO NEW ORDERS AT THIS TIME.
--- NOTE | 2017-07-26 19:15 | NUR ---
REPORT RECV'D FROM MIKE GUERRA. PT AWAKE WATCHING TV. BARAK IN PLACE. DRESSING C/D/I. WATKINS IN PLACE AND DRAINING WELL. PICC LINE IN PLACE. PATIENT ORIENTED TO SELF. NO FURTHER NEEDS AT THIS TIME. CALL LIGHT IN PLACE.
--- NOTE | 2017-07-26 21:23 | NUR ---
IN TO SEE PT, PT AWAKE. PM MEDICATIONS GIVEN. CBG 176, 2 UNIT OF NOVOLOG VERIFIED AND GIVEN. DRESSING TO L THING REMOVED. SEROSANGUINOUS DRY DRAINAGE NOTED ON THE DRESSING. INCISION SLIGHTLY REDDENED AROUD THE MARGINS, SUTURES INTACT. NO DRAINAGE OR ODOR NOTED. FLUFF GAUZE AND PAPER TAPE REAPPLIED. PT TOLERATED WELL, DENIES PAIN. PICC LINE INTACT, RETURNS BLOOD. LINE HEP LOCKED PER ORDER. NO FURTHER NEEDS AT THIS TIME. CALL LIGHT IN REACH.
--- NOTE | 2017-07-26 23:22 | NUR ---
IN TO CHECK ON PT, PT APPEARS TO BE SLEEPING. RR EVEN AND UNLABORED. NO APPARENT DISTRESS NOTED. ROLAND AND BARAK IN PLACE. CALL LIGHT IN REACH.
--- NOTE | 2017-07-27 01:20 | NUR ---
IN TO CHECK ON PT, PT AWAKE WATCHING TV. PT REQUEST MILK, MILK AT BEDSIDE. VITALS OBTAINED. LOW BP NOTED, WILL CONTINUE TO MONITOR. ASSESSMENT COMPLETE. NO FURTHER NEEDS AT THIS TIME. CALL LIGHT IN REACH.
--- NOTE | 2017-07-27 03:19 | NUR ---
IN TO CHECK ON PT, PT AWAKE. PT WATCHING TV. NO APPARENT DISTRESS NOTED. BARAK AND ROLAND IN PLACE. NO FURTHER NEEDS AT THIS TIME. CALL LIGHT IN REACH.
--- NOTE | 2017-07-27 05:09 | NUR ---
PT AWAKE FOR MOST OF SHIFT. ADA DIET. CBG CHECKS, SS INSULIN AND LEVEMIR FOR BLOOD SUGAR CONTROL. PICC LINE IN R ARM, HEP LOCKED. WATKINS IN PLACE, QS. BARAK DRAIN INTACT, DRSG CHANGE DONE. DRSG C/D/I. PT DENIES PAIN. PT ORIENTED TO SELF ONLY.
--- NOTE | 2017-07-27 05:51 | NUR ---
IN TO CHECK ON PT, PT AWAKE. AM MEDICATIONS GIVEN. VITALS TAKEN AND I&O COMPLETE. PT REQUESTED MILK, GIVEN. WARM BLANKET GIVEN FOR COMFORT. NO FURTHER NEEDS AT THIS TIME. CALL LIGHT IN REACH.
--- NOTE | 2017-07-27 07:05 | NUR ---
BEDSIDE HANDOFF REPORT RECEIVED FROM PAN GREASER RN. PT RESTING IN BED. PT DENIES NEEDS AT THIS TIME.
--- NOTE | 2017-07-27 07:45 | NUR ---
PT RESTING IN BED. PT DENIES PAIN. PT CONTINUES TO BE ORIENTED TO SELF ONLY. PT ON ROOM AIR, LUNG SOUNDS CLEAR. PT DENIES NAUSEA, BOWEL TONES ACTIVE. PT BLOOD GLUCOSE 147, GIVEN 1 UNIT SS NOVOLOG AND 12 UNITS LEVEMIR. PT BLE EDEMA SIGNIFICANTLY IMPROVED FROM YESTERDAY. DRESSING TO LEFT THIGH CDI, BARAK DRAIN IN PLACE. WATKINS CATH IN PLACE, DRAINING FEELY. PT DENIES NEEDS AT THIS TIME.
--- NOTE | 2017-07-27 11:14 | NUR ---
PT ASSISTED WITH BED BATH. PT INCONTINENT OF STOOL, PERICARE AND WATKINS CATH PERFORMED. SACRAL DRESSING REMOVED, WOUND ASSESS. TWO PURPLE UNBLANCHABLE AREAS, MEASURE 2X1 CM AND 1X0.5 CM, DARK RED AREA MEASURE 1X1 CM. OPEN AREA MEASURIGN 3X1 CM. SURROUNDING TISSUE REDDENED AND BLANCHABLE. NOTIFIED, WILL ASSESS WOUND. PT TURNED TO LEFT SIDE WITH PILLOWS. PT DENIES OTHER NEEDS AT THIS TIME.
--- NOTE | 2017-07-27 12:10 | NUR ---
MD TO BEDSIDE TO EVAULATE PT. ASSESSED SACRAL ULCER, STAGE II. ENSURE PROVIDED.
--- NOTE | 2017-07-27 13:36 | NUR ---
PT WORKED WITH PHYSICAL THERAPY. PT MAX ASSIST TO STAND WITH FWW. ASSISTED TO SIT IN CHAIR. PT PROVIDED CALL LIGHT. PT DENIES OTHER NEEDS AT THIS TIME.
--- NOTE | 2017-07-27 14:57 | NUR ---
PT ASSISTED BACK TO BED WITH SAVAGE LIFT. FAMILY AT BEDSIDE. PT DENIES NEEDS AT THIS TIME.
--- NOTE | 2017-07-27 17:46 | NUR ---
PT BLOOD GLUCOSE 197, GIVEN 2 UNITS SS NOVOLOG. PT HAS NOT VOIDED, ASSESSED FOR INCONTINENCE. PT DENIES NEEDS AT THIS TIME.
--- NOTE | 2017-07-27 18:00 | NUR ---
PT DOING WELL SET HER UP FOR DINNER AND FEED HER. PT HAS CALL LIGHT IN REACH.
--- NOTE | 2017-07-27 18:25 | NUR ---
PT ALERT, ORIENTED TO SELF. PT ON ROOM AIR, LUNG SOUNDS CLEAR. PT CONTINUES TO HAVE POOR APPETITE, DRINKS GLUCERNA/ENSURE. PT WITH LOOSE STOOL X1. PT WITH STAGE II PRESSURE ULCER TO SACRUM, ALLYVN DRESSING IN PLACE. PT WOKRED WITH PHYSCIAL THERAPY, STOOD AT BEDSIDE, SAT IN CHAIR, SAVAGE LIFT. WATKINS CATH REMOVED AT 1540, DUE TO VOID. PICC LINE HEPRIN LOCKED.
--- NOTE | 2017-07-27 19:10 | NUR ---
REPORT RECV'D FROM MIKE GUERRA. IN TO SEE PT, PT AWAKE. PT STATES SHE IS READY TO GO HOME. BARAK IN PLACE. ROLAND DOUGLAS DC'D AT 1500, PT DUE TO VOID. WILL MONITOR UO. NO FURTHER NEEDS AT THIS TIME. ALL [address] CALL LIGHT IN REACH.
--- NOTE | 2017-07-27 21:14 | NUR ---
IN TO CHECK ON PT, PM MEDICATION GIVEN. CBG 167, 1 UNIT OF NOVOLOG AND 10 UNITS OF LEVEMIR VERIFIED AND GIVEN. BLADDER SCAN DONE, RESULT OF GREATER THAN [address] TAVERAS NOTIFIED. [facility], THEN MONITOR DURING SHIFT. DR. TAVERAS WILL REASSESS PT IN THE AM. STRAIGHT CATH ORDERED PT NOTIFIED.
--- NOTE | 2017-07-27 23:15 | NUR ---
PT STRAIGHT CATH DONE, RETURN OF 500 MLS YELLOW URINE. TRISHA CARE COMPLETE. PT HAD SMALL SMEAR OF STOOL IN ATTENDS. ATTENDS CHANGED. BARRIER CREAM APPLIED TO TRISHA AREA. ALLEVIN DRESSING INTACT ON SACRUM. EDEMA NOTED IN PT'S TRISHA AREA AND L LABIA. PT TOLERATED PROCEDURE WELL. WILL CONTINUE TO MONITOR SKIN AND UO. PT REPOSITIONED TO L SIDE. NO FURTHER NEEDS. CALL LIGHT IN PLACE.
--- NOTE | 2017-07-27 23:52 | NUR ---
IN TO CHECK ON PT, PT APPEARS TO BE SLEEPING. NO AAPARENT DISTRESS NOTED. RR EVEN AND UNLABORED. CALL LIGHT IN REACH.
--- NOTE | 2017-07-28 01:54 | NUR ---
IN TO CHECK ON PT, PT AWAKE. SHE STATES SHE HAS BEEN RESTING. REPOSITION TO BACK. BARAK IN PLACE. PICC LINE INTACT. CALL LIGHT IN REACH.
--- NOTE | 2017-07-28 03:59 | NUR ---
IN TO CHECK ON PT, PT APPEARS TO BE SLEEPING. NO APPARENT DISTRESS NOTED. ALL [address] CALL LIGHT IN REACH.
--- NOTE | 2017-07-28 05:35 | NUR ---
PT HAS HAD UNEVENTFUL SHIFT, SLEPT WELL. PT ORIENTED TO SELF ONLY. 2100 CBG 167, NOVOLG AND LEVEMIR GIVEN. WATKINS D/C 07/27/17 @ 1550, PT UNABLE TO VOID. STRAIGHT CATH X1. EXCORIATION NOTED IN TRISHA AREA, NYSTATIN AND BARRIER CREAM APPLIED. STAGE 2 DECUBITUS ULCER ON COCCYX, DRSG INTACT. PT TO BE TURNED Q2. BARAK TO L THIGH, DRSG D/I. EDEMA NOTED IN BILAT LE, L UPPER THIGH AND L LABIA. PICC LINE IN R ARM, GOOD BLOOD RETURN, FLUSHES WELL, HEP LOCKED. PT IS SAVAGE LIFT TO CHAIR.
--- NOTE | 2017-07-28 06:52 | NUR ---
IN TO GIVE AM MEDICATIONS. ATTENDS CHANGED, SM AMOUT OF URINE NOTED. BLADDER SCAN DONE, 672 MLS NOTED. TRISHA CARE COMPLETE, NYSTATIN AND BARRIER CREAM APPLIED. INCREASED SEROSANGUINEOUS FLUID NOTED FROM BARAK. DRSG NOTED TO HAVE SEROSANGUINEOUS FLUID NOTED ON DRSG, DRSG CHANGE COMPLETE. PT REPOSITIONED FOR COMFORT. NO FURTHER NEEDS AT THIS TIME. CALL LIGHT IN PLACE.
--- NOTE | 2017-07-28 07:45 | NUR ---
PATIENT INC OF URINE, CHANGED ATTENDS, TRISHA CARE DONE. PLACED NYSTATIN CREAM TO TRISHA AREA.
--- NOTE | 2017-07-28 07:50 | NUR ---
Assisted patient with bed bath. olga and skin care done. patient voided into attends. warm blankets given. patient sitting straight up in bed for breakfast. call button in reach. SCDs on. No other needs at this time.
--- NOTE | 2017-07-28 09:34 | NUR ---
DR RESTREPO IN TO SEE PATIENT. WILL LEAVE BARAK FOR NOW. PT TO BE DISCHARGED TO [facility] TOMORROW.
--- NOTE | 2017-07-28 09:43 | NUR ---
PATIENT REPOSITIONED ON RIGHT SIDE. PATIENT GIVEN ENSURE. PATIENT DENIES NEEDS.
--- NOTE | 2017-07-28 09:57 | NUR ---
PATIENT IN BED RESTING WITH EYES CLOSED. REPOSITIONED ONTO LEFT SIDE. RIGHT LEG ELEVATED. SIDE RAILS UP. DAUGHTER IN ROOM. NO OTHER NEEDS AT THIS TIME.
--- NOTE | 2017-07-28 11:23 | NUR ---
Assisted patient to work with physical therapy. Patient unable to stand, even with two person assist. Used overhead lift to place patient in chair. Patient has call light in reach.
--- NOTE | 2017-07-28 12:34 | NUR ---
Patient sitting up in chair with lunch tray. Call light in reach.
--- NOTE | 2017-07-28 13:19 | NUR ---
This RN uses overhead lift to place patient back into bed, changed attends. Patient given warm blanket. Call light in reach.
--- NOTE | 2017-07-28 14:21 | NUR ---
PATIENT ACTING RESTLESS. Repositioned onto left side. Bed alarm on. Side rails up.
--- NOTE | 2017-07-28 15:43 | NUR ---
2 PERSON ASSIST DIAPER AND SKIN CARE DONE ON PATIENT. TURNED HER ONTO THE RIGHT SIDE. FOOT CRADDLE ON BED DUE TO PATIENT COMPLAIN OF THE BLANKETS HURTING HER TOES WHEN TOUCHED. SIDE RAILS UP. NO OTHER NEEDS AT THIS TIME. THIS CATTLE MANAGER PICKED UP ROOM AND EMPTIED TRASH CANS. CALL BUTTON IN REACH.
--- NOTE | 2017-07-28 16:14 | NUR ---
PATIENT AWAKE IN CHAIR. HELPED PATIENT BRUSH TEETH AND MOTH WASH. GOT PT SOME ICE TEA AND FRESH WATER.
--- NOTE | 2017-07-28 17:07 | NUR ---
TRISHA SKIN CARE DONE WITH 2 PERSON ASSIST. REPOSITIONED ONTO LEFT SIDE. WARM BLANKETS GIVEN CALL BUTTON IN REACH. NO OTHER NEEDS AT THIS TIME.
--- NOTE | 2017-07-28 17:08 | NUR ---
PATIENT INC. OF URINE. CHANGED PATIENT, TRISHA CARE DONE. REPOSITIONED PATIENT ON LEFT SIDE.
--- NOTE | 2017-07-28 18:47 | NUR ---
FAMILY AT BEDSIDE. PATIENT REPOSITIONS PATIENT.
--- NOTE | 2017-07-28 19:19 | NUR ---
PATIENT REMAINS PLEASANTLY CONFUSED. REQUIRES REMINDERS TO EAT AND DRINK. PATIENT VERY WEAK, HAS BEEN UP TO CHAIR TODAY WITH SAVAGE LIFT. PATIENT INC OF URINE. SKIN VERY FRAGILE. COCCYX DECUB. PATIENT TURNED Q2 HOURS. PATIENT STILL HAS BARAK TO LEFT THIGH WHICH IS DRAINING SEROUS FLUID. PATIENT LIKELY WILL BE DISCHARGED TO [facility] IN AM.
--- NOTE | 2017-07-28 19:20 | NUR ---
RECEIVED REPORT FROM RN. PATIENT DENIES NEEDS AT THIS TIME.
--- NOTE | 2017-07-28 21:57 | NUR ---
PT INCONTINENT OF URINE. BARAK DRAIN ALSO DRAINING AROUND THE INSERTION SITE. CLEANED PT UP, BARRIER CREAM TO REDDENED AREAS, TRISHA AREA AND COCCYX. ALLEVYNT DRESSING IN PLACE ON COCCYX. TWO NEW WHITE CHUX UNDER PT AND PLACED BLUE CHUX UNDER LEG WITH BARAK FOR BETTER MONITORING OF LEAKAGE. BARAK DRAINING TRANSPARENT SEROUS FLUID. REPOSITIONED PT IN BED. HEEL PROTECTORS, SCD'S, AND FOOT CRADLE IN PLACE. PT IN NO APPARENT DISTRESS, RESTING IN BED QUIETLY.
--- NOTE | 2017-07-28 23:40 | NUR ---
PATIENT RESTING COMFORTABLY IN BED. BREATHING IS EVEN AND UNLABORED. HEEL PROTECTORS ON, SCDs IN PLACE.
--- NOTE | 2017-07-29 02:40 | NUR ---
PATIENT IS RESTING COMFORTABLY IN BED. BREATHING IS EVEN AND UNLABORED. CALL LIGHT WITHIN REACH.
--- NOTE | 2017-07-29 04:39 | NUR ---
PATIENT RESTING COMFORTABLY IN BED. BREATHING IS EVEN AND UNLABORED. CALL LIGHT WITHIN REACH.
--- NOTE | 2017-07-29 05:11 | NUR ---
PATIENT REPOSITIONED AND LINENS CHANGED. NEW DRESSING APPLIED TO BARAK DRAIN AND WOUND ON COCCYX. PATIENT RESTING COMFORTABLY IN BED, CALL LIGHT WITHIN REACH.
--- NOTE | 2017-07-29 06:02 | NUR ---
PATIENT RESTING COMFORTABLY IN BED. BREATHING IS EVEN AND UNLABORED. CALL LIGHT WITHIN REACH.
--- NOTE | 2017-07-29 06:02 | NUR ---
PATIENT'S NIGHT WAS UNEVENTFUL. SHE HAS BEEN RESTING COMFORTABLY THROUGHOUT SHIFT. VSS, NO COMPLAINTS OF PAIN. NO ACUTE CHANGES FROM BEGINNING OF SHIFT ASSESSMENT. DUE TO BEING BED-BOUND, Q2H TURNING DONE. INTENTIONAL ROUNDING DONE WITH ALL PATIENT'S NEEDS MET.
--- NOTE | 2017-07-29 06:51 | NUR ---
PATIENT HAS A BLOOD PRESSURE OF 84/42 AND PULSE OF [address] TAVERAS NOTIFIED. HE SAID TO RE-CHECK IN 1 HOUR. NO NEW ORDERS AT THIS TIME.
--- NOTE | 2017-07-29 07:28 | NUR ---
REPORT RECEIVED FROM MARI LÓPEZ. PT CURRENTLY SLEEPING.
--- NOTE | 2017-07-29 07:32 | NUR ---
PATIENT RESTING IN BED WITH EYES CLOSED. SIDE RAILS UP.
--- NOTE | 2017-07-29 09:27 | NUR ---
BED BATH AND LINEN CHANGE DONE. TRISHA, SKIN, AND ORAL CARE DONE. POSISTIONED ONTO LEFT SIDE. SIDE RAILS UP CALL BUTTON IN REACH FRESH ICE WATER GIVEN.
--- NOTE | 2017-07-29 11:26 | NUR ---
PT HOYERED TO CHAIR. CHANGED ALLVYN ON COCCYX. PT TOLERATED WELL. ALTHOUGH STATED SHE WOULD LIKE TO GO BACK TO [place].
--- NOTE | 2017-07-29 11:50 | NUR ---
PT SITTING UP IN CHAIR EATING LUNCH. PT BS CHECKED, GIVEN 2 UNITS. HEP FLUSHED.
--- NOTE | 2017-07-29 13:30 | NUR ---
2 KIRAN WAN LIFT BACK TO BED. TRISHA CARE DONE. SIDE RAILS UP CALL BUTTON IN REACH. NO OTHER NEEDS AT THIS TIME.
--- NOTE | 2017-07-29 14:25 | NUR ---
PICC LINE REMOVED WNL. PT TOLERATED WELL. OCCLUSIVE DRESSING IN PLACE WITH COBAN WRAPPED TIGHTLY.
--- NOTE | 2017-07-29 15:17 | NUR ---
FAXED CHART NOTES AND ORDERS TO [facility], INCLUDING FACESHEET, H AND P, PROG NOTES, PT EVAL AND NOTES, AND ORDERS.
--- NOTE | 2017-08-02 13:40 | DS ---
[facility] [address], [place] [address] Signed DATE OF DISCHARGE: 07/29/17 REASON FOR ADMISSION This markedly debilitated 77-year-old white woman is accompanied by her son and [id number] having presented to the emergency room with persistent left thigh fluid collection, most likely considered infected hematoma. A plan was made for drainage of the large fluid collection based on an MRI performed on July 03, 2017. At the time of planned intervention, her sodium level was 118 and she was deemed a poor candidate for intervention at that time. She has had extensive evaluation of the fluid collection including the left lower extremity venous duplex ultrasound performed under the direction of her primary physician Dr. Kim on June 20, 2017. A multiloculated fluid collection along the lateral aspect of the left upper thigh 23 cm in size with no associated vascularity was noted. Knee and hip plain x-ray showed no evidence of fracture or dislocation. An MRI performed July 03 under the direction of Dr. Alfred Kaminski, orthopedist showed gluteal muscles and vastus muscles of the thigh totally or nearly totally replaced by multilobulated fluid collection suggestive of extensive myonecrosis and hematoma. She had no systemic toxicity at that time. Her hyponatremia has progressively improved. She presents to the emergency room with thigh pain, evaluation by Dr. Tyler Contreras showed a chest x-ray, which was normal; a head CT, which showed frontal sinusitis. Her mental status had been decreasing though she has baseline dementia. During the course of evaluation, she was noted to have an elevated white count of 14,000 (previously 19.6 on July 09 and therefore improved today) with a platelet count of 179,000, band form 1%. Her sodium is now 126 with a potassium of 4.7, glucose 205, and lactic acid of 3.7. I was consulted on the possibility that the uncomfortable fluid collection may represent infection and consideration for drainage is made. 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 She has chronic hyponatremia, diabetes mellitus, stage III renal dysfunction with GFR between 30 and 59 mL/minute and has been described as having Jones's esophagus, chronic rhinitis, hyperlipidemia, history of thrombocytopenia and leukopenia, and history of umbilical hernia. She is considered to have low-grade ascites as well. PERTINENT PHYSICAL EXAM GENERAL: A thin elderly woman who looks to be chronically ill and debilitated. She was not clinically dehydrated. CHEST: Clear. HEART: Regular without murmur. ABDOMEN: Did not show extensive ascites though there were some distention and poor muscle tone. Electronically Signed By: ROSAURA RESTREPO MD 08/02/17 1340 PATIENT NAME: HOUSTON SLOAN DISCHARGE SUMMARY DATE OF : 38 PHYSICIAN: ROSAURA RESTREPO MD REPORT #: [id number] REPORT IS CONFIDENTIAL AND NOT TO BE RELEASED WITHOUT AUTHORIZATION [address] [address] Signed EXTREMITIES: Showed muscle wasting bilaterally with a very tense and very firm left anterolateral thigh fluid collection extending from just above the knee to the hip itself. There was some peripheral edema. HOSPITAL COURSE The fluid collection was of uncertain etiology and had been anticipated to be drained in the past. On the possibility this may represent a focus of infection, she went to operation. She had no intravenous sedation, only local anesthetic, but with monitoring by the acoustic warfare analyst. This was Epifanio Liang CRNA. Incision in the inferior aspect of the thigh on the left side showed extensive complete thick purulent material. A total of 1400 mL of purulence was removed. Irrigation was undertaken in the space and a 7 mm flat Gregory drain placed to closed suction. She was taken to the intensive care unit for further management. Broad-spectrum antibiotics were initiated including meropenem. Postoperatively, she was improved hemodynamically though she did have hypotension with systolic pressure of approximately 70-75 requiring a norepinephrine drip. Urine output improved with a mean arterial pressure that was maintained in higher level. Fluids had been administered prior to initiation of the pressor agent, but were insufficient. She was noted to be hyperglycemic as well and a consultation was sought from Dr. Sheela Garcia on July 21, 2017, an elaborated insulin regimen was initiated. The patient had persistent and progressive drainage of thick purulent material indicative of the extent of this process. She had progressive improvement. Meropenem antibiotic was maintained and when Gram stain showed gram-positive cocci in clusters, Vancomycin was added to her regimen. Ultimately, a group B Streptococcus isolate was noted and found to be sensitive to the Vancomycin as well as to Levaquin. The Meropenem was discontinued and Vancomycin maintained. In time, Levaquin orally administered was given and transitioned from IV Vancomycin to IV Levaquin and ultimately oral Levaquin initiated. Consultative care was assumed by Dr. Capone by July 28, 2017. The patient had progressive improvement, marked improvement in her leg, her mental status and overall well-being. Physical therapy was initiated. She did begin to develop a small decubitus of the sacrum considered grade 2. DuoDerm was applied to this area. She is anticipated to return to the [facility] where she had originally been living. The drain is now draining completely clear yellow fluid, still maintains an output of approximately 200 mL a day. When that drainage is less than 30 mL a day, it will be pulled. As regards to follow-up, most likely I will do a house call visit at the [facility] to remove the drain as mobilizing the patient is rather difficult and risk for the patient. Electronically Signed By: ROSAURA RESTREPO MD 08/02/17 1340 PATIENT NAME: HOUSTON SLOAN DISCHARGE SUMMARY DATE OF : 38 PHYSICIAN: ROSAURA RESTREPO MD REPORT #: [id number] REPORT IS CONFIDENTIAL AND NOT TO BE RELEASED WITHOUT AUTHORIZATION [facility] [address], [place] [address] Signed It is anticipated that she will be maintained with physical therapy, hoping to ultimately return to her status of independent weightbearing and ambulation. Notably, she has been bed-bound since late March likely in relation to this underlying process of the left thigh. DISCHARGE DIAGNOSES Large left thigh abscess (greater than 1400 mL) probably related to infected hematoma. Dementia. Mesh with low-grade cirrhosis treated by Lasix and Spironolactone. DISCHARGE MEDICATIONS Will include Levaquin 500 mg p.o. daily, #5; Fish Oil 1000 mg p.o. daily; Nadolol 20 mg p.o. daily; Spironolactone 50 mg p.o. daily; Tramadol 50 mg p.o. q.8 hours p.r.n. pain; Tylenol 650 mg p.o. t.i.d. p.r.n. pain; Calcium Carbonate, Vitamin D tablet 1 p.o. daily; Potassium chloride 20 mEq p.o. daily; Lasix 40 mg p.o. daily; Dymista nasal spray (Azelastine-Fluticasone) 2 sprays b.i.d. each nostril; Dulcolax 10 mg suppository daily; Milk of Magnesia 30 mg p.o. p.r.n. constipation; Fleet enema p.r.n.; Zofran tablets 4 mg p.o. q.6 hours sublingual as needed for nausea p.r.n.; Pantoprazole 40 mg p.o. daily; Metformin 500 mg p.o. daily with breakfast; insulin NovoLog FlexPen based on sliding scale; NPH insulin Humulin N 25 units subcu with dinner; NPH Humulin 3 0 units subcu with breakfast; Nystatin topically as needed for intertriginous areas; Vitamin D3 1000 units p .o. b.i.d.; Multivitamin p.o. daily; Flaxseed oil 1000 mg p.o. daily. MD LAYLA Herrera/Jena /[id number] cc: MD Aleksandra Ramírez MD Randal Fryer, MD Kent Walker, DO Alfred Kaminski MD Electronically Signed By: ROSAURA RESTREPO MD 08/02/17 1340 PATIENT NAME: HOUSTON SLOAN DISCHARGE SUMMARY DATE OF : 38 PHYSICIAN: ROSAURA RESTREPO MD REPORT #: [id number] REPORT IS CONFIDENTIAL AND NOT TO BE RELEASED WITHOUT AUTHORIZATION
== END 2017-07-29 16:05 | DRG 872 ==
LOC: ED 09:40 → CCU 13:10 → MS 07-25 15:20
PROVIDERS: ADMIT Surgery
PROC: 0H9JX0Z Drainage of Left Upper Leg Skin with Drainage Device, External Approach (ICD-10-PCS; principal; 2017-07-19 15:00)
DX: A41.9 Sepsis, unspecified organism (principal); E87.1 Hypo-osmolality and hyponatremia; K74.60 Unspecified cirrhosis of liver; K75.81 Nonalcoholic steatohepatitis (NASH); E11.65 Type 2 diabetes mellitus with hyperglycemia; Z79.4 Long term (current) use of insulin; I12.9 Hypertensive chronic kidney disease with stage 1 through stage 4 chronic kidney disease, or unspecified chronic kidney disease; E11.22 Type 2 diabetes mellitus with diabetic chronic kidney disease; N18.3 Chronic kidney disease, stage 3 (moderate); E78.5 Hyperlipidemia, unspecified; K22.70 Barrett's esophagus without dysplasia; L89.152 Pressure ulcer of sacral region, stage 2; B95.1 Streptococcus, group B, as the cause of diseases classified elsewhere
CPT/HCPCS: 00400; 36415; 36569; 51702; 51798; 70450; 71010; 80048; 80053; 80202; 81001; 82140; 83036; 83605; 83735; 84100; 84134; 84484; 85025; 86140; 87040; 87070; 87075; 87077; 87088; 87186; 87205; 93005; 93010; 94762; 97110; 97163; 97530; C1751; G0480; J0690; J2185; J3010; J3370; J3475; J7040; J7042; J7060; J7120

== ENCOUNTER 2017-08-27 19:49 | Emergency (ER) | payer MEDICARE, OTHER ==
[~2017-08-27] VITALS: Ht 162.6 cm; Wt 54.4 kg
[~2017-08-27 19:49] MED LIST changes: +ACETAMINOPHEN650 M1 PO; +DULCOLAX10 MG PR; +FLEET ENEMA133 ML PR; +GLUCAGON EMERGEN1 MG INJ; +MILK OF MA400 MG/5 M PO; +POTASSIUM CHLO20 ME1 PO; +ULTRAM50 MG PO; +ZOFRAN ODT4 MG SL
[2017-08-27] MEDS ORDERED: ALDACTONE50 MG PO (20:36)
[2017-08-27] MEDS ORDERED: FLEET ENEMA133 ML PR (20:38)
[2017-08-27] MEDS ORDERED: KRISTALOSE10 GM PO (20:40)
[2017-08-28] MEDS ORDERED: KEFLEX500 MG PO (00:03)
--- NOTE | 2017-08-28 19:17 | EKG ---
[facility] [address] [facility] [place] [address] \T\ T wave abnormality, consider inferior ischemia Abnormal ECG When compared with ECG of 19-JUL-2017 10:06, ST now depressed in Inferior leads T wave inversion now evident in Inferior leads Confirmed by LUIS ALBERTO TAVERAS MD ([id number]) on 08/28/2017 7:17:22 PM Electronically Signed By: LUIS ALBERTO TAVERAS MD 08/28/17 1917 PATIENT NAME: HOUSTON SLOAN GINNY Electrocardiogram DATE OF : 38 PHYSICIAN: LUIS ALBERTO TAVERAS MD REPORT #: [id number] REPORT IS CONFIDENTIAL AND NOT TO BE RELEASED WITHOUT AUTHORIZATION
== END 2017-08-28 01:06 | disposition home or self-care (01) ==
LOC: ED 19:49
PROC: 0T9B70Z Drainage of Bladder with Drainage Device, Via Natural or Artificial Opening (ICD-10-PCS; principal; 2017-08-27)
DX: N39.0 Urinary tract infection, site not specified (principal); K72.90 Hepatic failure, unspecified without coma; G93.41 Metabolic encephalopathy; E78.5 Hyperlipidemia, unspecified; D64.9 Anemia, unspecified; Z86.73 Personal history of transient ischemic attack (TIA), and cerebral infarction without residual deficits; F32.9 Major depressive disorder, single episode, unspecified; E11.9 Type 2 diabetes mellitus without complications; K21.9 Gastro-esophageal reflux disease without esophagitis; I10 Essential (primary) hypertension; M81.0 Age-related osteoporosis without current pathological fracture; Z87.440 Personal history of urinary (tract) infections; Z85.038 Personal history of other malignant neoplasm of large intestine; Z90.49 Acquired absence of other specified parts of digestive tract; Z90.710 Acquired absence of both cervix and uterus; Z90.89 Acquired absence of other organs; Z88.0 Allergy status to penicillin; Z79.4 Long term (current) use of insulin; Z79.899 Other long term (current) drug therapy
CPT/HCPCS: 36415; 51701; 71010; 80053; 81001; 82140; 84484; 85025; 85610; 85730; 87088; 93005; 93010; 96374; 99284; J0696

== ENCOUNTER 2017-09-12 14:11 | Inpatient (IN) | payer MEDICARE, OTHER ==
[~2017-09-12] VITALS: Ht 162.6 cm; Wt 54.4 kg
[~2017-09-12 14:11] MED LIST changes: +ALDACTONE50 MG PO; +KRISTALOSE10 GM PO
[2017-09-14] MEDS ORDERED: SPIRONOLACTONE100 MG PO ×2 (12:16→13:02)
[2017-09-14] MEDS ORDERED: LACTULOSE10 GM/151 PO ×2 (12:33→13:02)
[2017-09-14] MEDS ORDERED: FUROSEMIDE80 MG PO (12:33)
[2017-09-14] MEDS ORDERED: LINZESS145 MCG PO (12:33)
[2017-09-14] MEDS ORDERED: XIFAXAN550 MG PO (12:35)
[2017-09-14] MEDS ORDERED: VITAMIN D1000 UNI1 PO (12:36)
[2017-09-14] MEDS ORDERED: LEVEMIR FL100 UNIT/2 SUB-Q (12:36)
[2017-09-14] MEDS ORDERED: FISH OIL 1,0001 EAC3 PO (12:37)
[2017-09-14] MEDS ORDERED: CENTRUM COMPLE1 EACH PO (12:37)
[2017-09-14] MEDS ORDERED: OMEGA 3 1,0001 EACH PO (12:38)
[2017-09-14] MEDS ORDERED: AZELASTINE137 MCG/0. NAS (12:38)
[2017-09-14] MEDS ORDERED: CALCITRATE + V1 EACH PO (12:39)
[2017-09-14] MEDS ORDERED: FUROSEMIDE40 MG PO (13:04)
== END 2017-09-14 13:35 | DRG 682 ==
LOC: ED 14:11 → MS 16:58
PROVIDERS: ADMIT Internal Medicine
DX: N17.9 Acute kidney failure, unspecified (principal); G93.40 Encephalopathy, unspecified; N39.0 Urinary tract infection, site not specified; K76.6 Portal hypertension; E87.1 Hypo-osmolality and hyponatremia; L89.152 Pressure ulcer of sacral region, stage 2; K72.90 Hepatic failure, unspecified without coma; K76.0 Fatty (change of) liver, not elsewhere classified; E11.9 Type 2 diabetes mellitus without complications; E86.0 Dehydration; E78.5 Hyperlipidemia, unspecified; N18.9 Chronic kidney disease, unspecified; Z88.0 Allergy status to penicillin; Z79.4 Long term (current) use of insulin; F32.9 Major depressive disorder, single episode, unspecified; D69.6 Thrombocytopenia, unspecified; Z86.73 Personal history of transient ischemic attack (TIA), and cerebral infarction without residual deficits; Z90.710 Acquired absence of both cervix and uterus
CPT/HCPCS: 36415; 71010; 80053; 81001; 82140; 83735; 85025; 87088; J0696; J7030; J7120

== ENCOUNTER 2018-01-10 21:04 | Observation (INO) | payer MEDICARE, OTHER ==
[~2018-01-10] VITALS: Ht 162.6 cm; Wt 57.6 kg
[~2018-01-10 21:04] MED LIST changes: +AZELASTINE137 MCG/0. NAS; +CALCITRATE + V1 EACH PO; +FUROSEMIDE40 MG PO; +FUROSEMIDE80 MG PO; +LACTULOSE10 GM/151 PO; +LEVEMIR FL100 UNIT/2 SUB-Q; +LINZESS145 MCG PO; +OMEGA 3 1,0001 EACH PO; +SPIRONOLACTONE100 MG PO; +VITAMIN D1000 UNI1 PO; +XIFAXAN550 MG PO
[2018-01-10] MEDS ORDERED: BACLOFEN10 MG PO (21:15)
[2018-01-10] MEDS ORDERED: BUSPIRONE HCL10 MG PO (21:18)
[2018-01-10] MEDS ORDERED: NOVOLOG100 UNIT/2 SQ (21:21)
[2018-01-10] MEDS ORDERED: DIFICID200 MG PO (21:23)
--- NOTE | 2018-01-11 07:36 | NUR ---
PATIENT ARRIVED FROM ER DURING SHIFT CHANGE REPORT. PATIENT TRANSFERRED TO BED BY STAFF. PATIENT IS NOT AROUSABLE TO SOUND OR STIMULI AT THIS TIME. IVF IS NORMAL SALINE @ 150 TO LEFT ARM #20.
--- NOTE | 2018-01-11 07:46 | NUR ---
HELPED TRANSFER PT TO BED DURING SHIFT CHANGE.
--- NOTE | 2018-01-11 08:21 | NUR ---
RECIEVIED REPORT FROM MARI GRACIA. TRIED TO PLACE ANOTHER IV, BUT IT BLEW. SMALL FRAGILE VEINGS. PT DID NOT WINCE OR MOVE. ROLLED AND ASSESSED SKIN CONDITION. RED BLANCHABLE 3X3 INCH SPOT ON COCCYX. HAS OLD YELLOW SCAB MATERIAL. APPLIED BARRIER CREAM AND NEW ATTEND. REMOVED SOCKS AND PLACED HOSPITAL NON SKIDS. MULTIPLE BRUISES NOTED ALL OVER BODY. MOST DIME SIZED. PROPPED ON SIDE WITH PILLOW.
--- NOTE | 2018-01-11 10:34 | NUR ---
MARI GRACIA AND THIS RN TRIED TO ADMINISTER ENULOSE ENEMA. PT WAS UNABLE TO RETAIN AND IT LEAKED BACK OUT. PT DID NOT WAKE THROUGH ANY OF THE PROCEDURE OR TALKING TO PT. PLACED A NEW DEPENDS AND CHUCKS UNDERHER. CURRENTLY LAYING ON SIDE.
--- NOTE | 2018-01-11 11:55 | NUR ---
CHANGED PT ATTENDS AND REPOSITIONED. ASSESSED BS. NO COVERAGE NEEDED. PT AWOKE SLIGHTLY AND OPENED EYES. WENT RIGHT BACK TO SLEEP.
--- NOTE | 2018-01-11 14:43 | NUR ---
REPOSITIONED PT. DID NOT WAKEN. SNORED WHEN ROLLED.
--- NOTE | 2018-01-11 16:35 | NUR ---
CHANGED PT DEPENDS AND REPOSITIONED. PT PEE'D IN BED AFTER REMOVING OLD DEPEND, CHANGED AGAIN. PT MORE WAKEFUL THAN EARLIER, STILL DROWY BUT OPENED IEYES AND LOOKED AT US.
--- NOTE | 2018-01-11 17:29 | NUR ---
ASSESSED PT BS, 144 NO COVERAGE INDICATED PT IS NPO AND NOT A\O ATT. PT WOKE BRIEFLY WITH POKE. STATED WHERE AND WHY SHE WAS BUT PT WENT BACK TO SLEEP.
--- NOTE | 2018-01-11 17:59 | NUR ---
ALYC[facility] CALLED FOR AN UPDATE. ASKED THEM HOW MUCH BACLOFEN PT HAD RECIEVED LEONEL STATED 2 10MG DOSES ON FRIDAY AND 4 10MG DOSES ON FRIDAY
--- NOTE | 2018-01-11 18:44 | NUR ---
PT HAS REMAINED OBTUNDED THROUGHOUT DAY. ALYCIA CALLED THIS EVENING TO CHECK ON PT AND STATED THAT SHE HAD 20MG FRIDAY AND 40MG ON FRIDAY IN 10 MG DOSES Q6. PT INCONTINENT, CHANGED AND REPOSITIONED Q2. UNABLE TO SWALLOW ORAL MEDS, CHARTED NOT GIVEN.
--- NOTE | 2018-01-11 19:10 | NUR ---
IN ROOM FOR REPORT, PT AWOKE FOR A MOMENT AND SAID HI. RESPIRATIONS ARE EVEN AND NONLABORED, ROOM IS CLOSE TO NURSES STATION AND BED ALARM IS ON.
--- NOTE | 2018-01-11 21:10 | NUR ---
REPOSITIONED PT SHE OPENED HER EYES AND MOANED A LITTLE WHILE TURNING AND FELL BACK ASLEEP.
--- NOTE | 2018-01-11 22:25 | NUR ---
WAS ABLE TO GET PT ALERT ENOUGH TO TAKE EVENING MEDICATIONS. PT SWALLOWED PO MEDS WITHOUT ANY COUGHING. CHAPSTICK APPLIED TO DRY LIPS AND ORAL SWABS USED. PT IS RESTING WITH EYES CLOSED, RESPIRATIONS EVEN AND NONLABORED,
--- NOTE | 2018-01-11 23:45 | NUR ---
REPOSITIONED PT AND CHANGED ATTENDS. BARRIER CREAM APPLIED TO REDDENED TRISHA AREA.
--- NOTE | 2018-01-12 01:09 | NUR ---
PT IS RESTING WITH EYES CLOSED, RESPIRATIONS EVEN AND NONLABORED.
--- NOTE | 2018-01-12 01:52 | NUR ---
PT IS CALLING OUT "HELP" WITH EYES CLOSED. SHE IS NOT RESPONDING TO OUR QUESTIONS OF HOW WE CAN HELP HER OR IF SHE IS IN PAIN. WILL CONTINUE TO MONITOR.
--- NOTE | 2018-01-12 02:17 | NUR ---
REPOSITIONED PT AND CHANGED ATTENDS, BARRIER CLOTHS AND CREAM USED. PT IS RESTING AT THIS TIME WITH HER EYES CLOSED, RESPIRATIONS EVEN AND NONLABORED.
--- NOTE | 2018-01-12 03:46 | NUR ---
PT CONTINUES TO CALL OUT "HELP" SHE IS NOT RESPONSIVE TO QUESTIONS ABOUT HOW WE CAN HELP HER. TRIED TURNING THE TV ON, IT HELPED FOR A SHORT TIME.
--- NOTE | 2018-01-12 04:53 | NUR ---
PT IS CALLING OUT "PLEASE HELP ME" BUT WILL NOT RESPOND TO QUESTIONS. PT HAS TURNED HERSELF A LITTLE AND FLATTENED OUT ON HER BACK. WILL REPOSITION HER AGAIN.
--- NOTE | 2018-01-12 05:31 | NUR ---
PT BECAME MORE AROUSABLE AND WAS ABLE TO TAKE HER EVENING MEDICATIONS LAST NIGHT. PT REPOSITIONED Q2H AND BARRIER CREAM APPLIED TO COCCYX/TRISHA AREA. PT REQUIRES CHANGING OF ATTENDS EVERY TIME SHE IS TURNED. SHE HAS LR @75 MLS/HR. SINCE JUST PRIOR TO 2AM PT STARTED CALLING OUT "HELP" BUT DOES NOT RESPOND TO QUESTIONS OF HOW WE CAN HELP HER. PT IS UNDER ENTERIC CONTACT ISO PRECATIONS FOR C-DIFF.
--- NOTE | 2018-01-12 06:41 | NUR ---
REPOSITIONED PT AND CHANGED ATTENDS.
--- NOTE | 2018-01-12 07:30 | NUR ---
FINISHED GETTING REPORT. PATIENT JUST YELLS HELP CONSTANTLY, BUT WILL NO COMMUNICATE TO WHAT SHE NEEDS HELP WITH. UNABLE TO COMMUNICATE WITH THIS PATIENT.
--- NOTE | 2018-01-12 08:32 | NUR ---
PATIENT RESTING IN BED. PATIENT REPOSITIONED TO LEFT SIDE. HEEL PROTECTORS ON. RN STATES THAT HE ASSISTED PATIENT WITH FULL BED BATH. HANDS AND FACE WASHED ORAL CARE DONE. CALL BUTTON IN REACH. NO OTHER NEEDS AT THIS TIME.
--- NOTE | 2018-01-12 10:14 | NUR ---
DISCHARGE LUDWIN INTO SEE THE PATIENT. PATIENT HAS BEEN SLEEPING FOR THE SOME TIME AFTER WE LEFT HER ROOM.
--- NOTE | 2018-01-12 10:42 | NUR ---
PATIENT SEEN BY DISCHARGE PLANNING UNSURE IF SHE WILL BE GOING BACK TO [place] TODAY. PATIENT JUST KEEPS SAYING, "HELP ME PAPA, HELP ME," BUT SHE STILL CANNOT IDENTIFIY WHAT SHE NEEDS HELP WITH. LABORER PRESTRESSED CONCRETE'S GOING IN TO CHECK ON NEED FOR ATTENDS CARE AND TO REPOSITION.
--- NOTE | 2018-01-12 11:04 | NUR ---
PATIENT ROTATED TO RIGHT SIDE. SKIN CARE PERFORMED ON PATIENT. CHAPSTICK APPLIED TO PATIENTS LIPS. CALL LIGHT IN REACH. BED ALARM ON. NO FURTHER NEEDS AT THIS TIME.
--- NOTE | 2018-01-12 14:40 | NUR ---
PATIENT HAS FRESH ATTENDS AND DRAW SHEET. THIS ASSISTED LIVING MANAGER HELPED PATIENT WITH PERICARE AND SKIN CARE. THIS ASSISTED LIVING MANAGER AND JENNA PELAEZ REPOSITIONED PATIENT WITH A PILLOW UNDER EACH HIP AND WASHED PATIENTS FACE AND HANDS. JENNA PELAEZ FILED PATIENTS NAILS SHORTER. THIS ASSISTED LIVING MANAGER APPLIED CHAPSTICK TO LIPS. CALL LIGHT IN REACH. NO OTHER NEEDS AT THIS TIME.
--- NOTE | 2018-01-12 17:05 | NUR ---
PATIENT IN BED WITH EYES CLOSED. THIS SENIOR JAVA UI DEVELOPER ASSISTED WITH TRISHA CARE. CLEAN ATTENDS ON. PATIENT TURNED ONTO LEFT SIDE. CHAPSTICK APPLIED TO LIPS. BED ALARM ON. CALL BUTTON IN REACH.
--- NOTE | 2018-01-12 18:45 | NUR ---
PATIENT HAS EITHER NAPPED OR YELLED HELP ME OR OTHER INCOMPREHENSIBLE WORDS ALL DAY. WILL NO ANSWER QUESTIONS, BUT I HAVE BEEN ABLE TO GET HER TO TAKE ALL HER MEDS TODAY USING A MEDICATION SYRINGE. EVEN THOUGH SHE HAS HAD A LOT OF LACTULOSE SHE HAS STILL NOT HAD A BOWEL MOVEMENT. IV IS STILL PATENT AND RUNNING FINE WITH LR AT 75MLS/HR. BLOOD SUGARS HAVE REQUIRED 1-3 UNITS OF INSULIN ALL DAY. PATIENT FINALLY DRANK TO ENSURESS JUST BEFORE END OF THE SHIFT.
--- NOTE | 2018-01-12 19:20 | NUR ---
RECEIVED REPORT, PT IS AWAKE IN BED WITH EYES OPEN, ROOM IS CLOSE TO NURSES STATION.
--- NOTE | 2018-01-12 22:11 | NUR ---
IN ROOM TO ADMINISTER EVENING MEDICATIONS AND REPOSITIONS PT. SHE CALLS OUT "HELP". WHEN ASKED WHAT SHE NEEDS HELP WITH SHE SAYS "NOTHING".
--- NOTE | 2018-01-12 23:35 | NUR ---
PT IS RESTING IN BED WITH EYES CLOSED, CALLING OUT "HELP" PT DOES NOT RESPOND TO QUESTIONS OF HOW WE CAN HELP HER.
--- NOTE | 2018-01-13 01:56 | NUR ---
REPOSITIONED PT AND CHANGED ATTENDS. BARRIER CREAM APPLIED AND ORAL CARE GIVEN. BED ALARM ON AND CALL LIGHT WITHIN REACH.
--- NOTE | 2018-01-13 03:33 | NUR ---
PT CONTINUES TO LAY IN BED AND CALL OUT "HELP" AND OTHER PHRASES THAT DO NOT MAKE SENSE. BED ALARM IS ON AND CALL LIGHT IS WITHIN REACH.
--- NOTE | 2018-01-13 05:11 | NUR ---
REPOSITIONED PT AND PUT FRESH ATTENDS WITH BARRIER CREAM. NEW IV FLUIDS HUNG AND BED ALARM IS ON.
--- NOTE | 2018-01-13 05:51 | NUR ---
PT DID NOT SLEEP WELL AND CONTINUED TO CALL OUT MOST OF THE NIGHT. SHE IS TURN Q2 AND NEEDS ATTENDS CHANGED OFTEN WELL WITH BARRIER CREAM APPLIED. LR IS RUNNING AT 75MLS/HR. SHE HAD MULTIPLE LIQUID BMS.
--- NOTE | 2018-01-13 06:50 | NUR ---
REPOSITIONED PT, SHE IS STILL AWAKE IN BED.
--- NOTE | 2018-01-13 07:33 | NUR ---
REPORT RECIEVED FROM MARI MARTÍNEZ. PT FINALLY ASLEEP AFTER BEING UP ALL NIGHT.
--- NOTE | 2018-01-13 08:54 | NUR ---
PT REPEATING "HELP ME LORD". WILL USE CORRECT WORDS OCCASIONALLY. WASHED FACE AND HANDS, BRUSHED TEETH. ADMINISTERED MEDS. CHANGED DEPENDS AND APPLIED BARRIER CREAM. TRISHA AREA LESS RED THAN FRIDAY. GIVEN DRINKS OF ICE WATER. PT SWALLOWED WO DIFF.
--- NOTE | 2018-01-13 09:14 | NUR ---
PT ASSISTED WITH EATING BREAKFAST. DID NOT LIKE THE EGGS. ABLE TO TAKE SOME BITES BY HERSELF. ADMINISTERED ZIO.
--- NOTE | 2018-01-13 12:18 | NUR ---
CHECKED BS AND ADMINISTERED MEDICATIONS. CHARGE ASSISTING PT WITH EATING LUNCH. WILL REPOSTION AGAIN WHEN DONE EATING.
--- NOTE | 2018-01-13 12:25 | NUR ---
FAMILY IN ROOM. PT SWITCHING BETWEEN JIBBERISH AND MAKING A SENTENCE. ASKED FOR MORE FOOD. GAVE HER A BITE OF SF VIBHA. PUDDING. WHICH SHE STATED SHE LIKED THEN SAID ENOUGH. ALERTED DR TAVERAS TO FAMILY BEING HERE.
[2018-01-13] MEDS ORDERED: LEVEMIR FL100 UNIT/2 SUB-Q (12:57)
[2018-01-13] MEDS ORDERED: MORPHINE S20 MG/5 ML PO (12:59)
[2018-01-13] MEDS ORDERED: LORAZEPAM INT2 MG/ML PO (13:00)
[2018-01-13] MEDS ORDERED: FUROSEMIDE40 MG PO (13:01)
--- NOTE | 2018-01-13 15:06 | NUR ---
FAXED CHART NOTES AND ORDERS TO [facility]. RECIEVED FAX CONFIRMATION, AND VERBAL CONFIRMATION FROM SOMMER OF THEM RECIEVING THEM. THE NEXT CALL STATED THAT THE ORDERS WERE ACCEPTED BY THE NURSES AT [facility] AND THEY WOULD SEND CARLO TO PROSTHETIC ASSISTANT THE PT.
--- NOTE | 2018-01-13 15:52 | NUR ---
TALKED WITH PT DAUGHTER TAYLOR AND TOLD HER HER MOTHER HAD BEEN MOVED TO [facility]. SHE STATED SHE ALREADY KNEW THAT BUT THANKED ME FOR CALLING HER.
== END 2018-01-13 15:14 | disposition home or self-care (01) ==
LOC: ED 21:04 → MS 21:05
PROVIDERS: ADMIT Internal Medicine
DX: G92 Toxic encephalopathy (principal); T42.8X5A Adverse effect of antiparkinsonism drugs and other central muscle-tone depressants, initial encounter; K72.00 Acute and subacute hepatic failure without coma; K72.10 Chronic hepatic failure without coma; Z51.5 Encounter for palliative care; K76.0 Fatty (change of) liver, not elsewhere classified; K74.60 Unspecified cirrhosis of liver; R18.8 Other ascites; K76.6 Portal hypertension; E78.5 Hyperlipidemia, unspecified; D61.818 Other pancytopenia; D73.1 Hypersplenism; N17.9 Acute kidney failure, unspecified; E87.1 Hypo-osmolality and hyponatremia; F32.9 Major depressive disorder, single episode, unspecified; E11.9 Type 2 diabetes mellitus without complications; M79.7 Fibromyalgia; I10 Essential (primary) hypertension; K21.9 Gastro-esophageal reflux disease without esophagitis; E55.9 Vitamin D deficiency, unspecified; Z66 Do not resuscitate; Z86.73 Personal history of transient ischemic attack (TIA), and cerebral infarction without residual deficits; Z88.0 Allergy status to penicillin; Z79.2 Long term (current) use of antibiotics; Z79.4 Long term (current) use of insulin; Z79.899 Other long term (current) drug therapy
CPT/HCPCS: 36415; 51701; 80053; 81001; 82140; 85025; 87077; 87088; 87186; 96361; 96374; 99285; G0378; J2405; J7030; J7120